=== PATIENT | female | born 1960 | race Caucasian/White ===

== ENCOUNTER 2024-01-26 14:22 | Emergency (ER) | payer BC, SELFPAY ==
[2024-01-26 14:26] VITALS: BP 148/85
[2024-01-26 15:00] VITALS: BP 141/79
[2024-01-26 15:05] VITALS: BMI 26.0
[2024-01-26 15:31] LABS: % Basophils 0.5 % (0-2); % Eosinophils 1.5 % (0-6); % Immature Granulocytes 0.5 % (0-0.5); % Lymphocytes 17.9 % (20.5-51.1); % Monocytes 9.1 % (1.7-9.3); % Neutrophils 70.5 % (42.2-75.2); Absolute Eosinophils 0.1 10^3/uL (0-0.7); Absolute Lymphocytes 1.2 10^3/uL (1.2-3.4); Absolute Monocytes 0.6 10^3/uL (0.1-0.6); Absolute Neutrophils 4.6 10^3/uL (1.4-6.5); Hematocrit 39.2 % (37.0-47.0); Hemoglobin 13.2 g/dL (12.0-16.0); Mean Corp Hgb Conc. 33.7 g/dL (33.0-37.0); Mean Corpuscular Hgb 30.3 pg (27.0-31.0); Mean Corpuscular Volume 89.9 fL (81.0-99.0); Mean Platelet Volume 9.6 fL (7.4-10.4); Nucleated Red Blood Cells % 0 %; Platelet Count 222 10^3/uL (130-400); Red Blood Cell Count 4.36 10^6/uL (4.20-5.40); White Blood Cell Count 6.5 10^3/uL (4.8-10.8)
[2024-01-26 15:35] LABS: INR 0.89; PT 12.1 Sec (11.4-14.6)
[2024-01-26 15:39] LABS: ALT (SGPT) 36 U/L (0-35); AST (SGOT) 31 U/L (14-36); Alkaline Phosphatase 96 U/L (38-126); Blood Urea Nitrogen 23 mg/dl (7-17); Calcium 9.5 mg/dl (8.4-10.2); Carbon Dioxide 24 mmol/L (22-30); Chloride 107 mmol/L (98-107); Estimated Creatinine Clearance 54 ml/min; Glucose 82 mg/dl (70-99); Potassium 3.9 mmol/L (3.5-5.1); Sodium 140 mmol/L (135-145); Total Bilirubin 0.3 mg/dl (0.2-1.3); Total Protein 6.4 g/dl (6.3-8.2); eGFR > 60.00
--- NOTE | 2024-01-26 15:44 | ED.GENMED ---
History of Present Illness
<Lynette Huitron PA-C - Last Filed: 01/26/24 19:39>
General
Chief Complaint: Chest Pain
Source: patient
Exam Limitations: none
Time Seen by Provider: 01/26/24 14:56
Nursing documentation reviewed up to this point in time: agreed with
History of Present Illness
History of Present Illness:
Patient is a 63-year-old female with history hypertension, CAD status post stents, diabetes presenting to the emergency department for evaluation of 1 day of chest discomfort associated with shortness of breath. Patient states that symptoms started
yesterday with a pressure type sensation in her mid chest. She also endorses a crampy type pain in her upper back in the mid scapular region. Patient does report subjective shortness of breath and pleuritic component to pain. Patient reports
minimal exertional component to discomfort. Patient denies any other alleviating or exacerbating factors the pain. Patient came to the emergency department for further evaluation given her cardiac history, although she does state that the symptoms
feel different than prior heart attacks.
Patient denies any associated fevers, chills, headache, neck pain. Patient denies any numbness/tingling in lower extremities or weakness.
Patient denies any recent travel or recent surgeries. No personal or family history of blood clots.
Patient has had stents placed with Dr. Geiger. Most recent catheterization was October 2022.\\
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
Review of Systems
<Lynette Huitron PA-C - Last Filed: 01/26/24 19:39>
Review of Systems
Allergies reviewed?: Yes
All Other Systems: ROS reviewed and negative except as documented in HPI and ROS
Phy Exam
<Lynette Huitron PA-C - Last Filed: 01/26/24 19:39>
Physical Exam
Physical Exam:
Vitals: Mildly hypertensive, otherwise vital signs stable. Afebrile
General: Patient is well appearing, no acute distress. Nontoxic-appearing
Skin: Warm and dry, no rashes or lesions
Head: Normocephalic, atraumatic
Eyes: Sclera nonicteric. EOMs intact. No nystagmus.
Throat: Protecting airway
Neck: Normal ROM, no cervical spine tenderness, no meningismus. No JVD
Cardiac: Regular rate and rhythm, no murmurs. No reproducible anterior chest wall tenderness.
Pulm: Normal respiratory effort, no wheezes, rales, rhonchi heard on exam.
Abdomen: Abdomen soft. No abdominal tenderness.
Extremities: No evidence of cyanosis or edema. No erythema or warmth of bilateral calves. Great distal pulses. Negative Homans' sign bilaterally.
Neuro: AAOx3. CN II-XII intact. No focal neurologic deficits.
Psychiatric: Normal affect.
Scores
<Lynette Huitron PA-C - Last Filed: 01/26/24 19:39>
Heart Score for Chest Pain Patients
STEMI patient?: No
History: Slightly or Non-Suspicious
ECG: Normal
Age: >45 - <65 years
Risk Factors: >/= 3 Risk Factors or History of CAD
Troponin: </= Normal Limit
Heart Score for Chest Pain Patients: 3
Heart Score Risk: 2.5% MACE over next 6 weeks
<Leonid Hall DO - Last Filed: 01/26/24 19:56>
Heart Score for Chest Pain Patients
Heart Score for Chest Pain Patients: 3
Heart Score Risk: 2.5% MACE over next 6 weeks
Course
<Lynette Huitron PA-C - Last Filed: 01/26/24 19:39>
Orders/Labs/Results
Orders:
Orders
01/26/24 14:24
ECG [Electrocardiogram (*1)] Urgent
Reason for Study: Chest Pain
EKG- Treatment ONCE
01/26/24 14:56
IV Insert/Care/Rem.- Treatment PRN
O2 Therapy [RESP] Urgent
Titrate/Wean O2 to maintain O2 sat greater than (%): 90
Special Instructions: Maintain sats >/=90%
Pulse Ox/spot Check [RESP] Urgent
Quantity: 1
Special Instructions: ON ROOM AIR
01/26/24 15:08
Complete Blood Count/With Diff Urgent
Comprehensive Metabolic Panel Urgent
Troponin I Urgent
01/26/24 15:09
D-Dimer Urgent
Comment: D DIMER ADDED ON BY FLOOR 3:40PM 01-26-24
Prothrombin Time Urgent
01/26/24 15:37
Add On- LAB Urgent
Tests Added?: d-dimer
01/26/24 16:53
CR Chest - 2 Views Urgent
Comment:
Reason For Exam: pleuritic chest pain, midscapular pain
Abnormal Lab Results
01/26/24
15:08
Lymphocytes % 17.9 L %
(20.5-51.1)
BUN 23 H mg/dl
(7-17)
ALT 36 H U/L
(0-35)
01/26/24 15:08
01/26/24 15:08
Vital Signs
Initial and Last Documented VS:
Initial Vital Signs
Temp Pulse Resp BP Pulse Ox
98.2 F 75 16 148/85 98
01/26/24 14:26 01/26/24 14:26 01/26/24 14:26 01/26/24 14:26 01/26/24 14:26
Last Documented Vital Signs
Temp Pulse Resp BP Pulse Ox
97.9 F 76 18 137/80 98
01/26/24 18:00 01/26/24 18:00 01/26/24 18:00 01/26/24 18:00 01/26/24 18:00
<Leonid Hall, DO - Last Filed: 01/26/24 19:56>
Orders/Labs/Results
Orders:
Orders
01/26/24 14:24
ECG [Electrocardiogram (*1)] Urgent
Reason for Study: Chest Pain
EKG- Treatment ONCE
01/26/24 14:56
IV Insert/Care/Rem.- Treatment PRN
O2 Therapy [RESP] Urgent
Titrate/Wean O2 to maintain O2 sat greater than (%): 90
Special Instructions: Maintain sats >/=90%
Pulse Ox/spot Check [RESP] Urgent
Quantity: 1
Special Instructions: ON ROOM AIR
01/26/24 15:08
Complete Blood Count/With Diff Urgent
Comprehensive Metabolic Panel Urgent
Troponin I Urgent
01/26/24 15:09
D-Dimer Urgent
Comment: D DIMER ADDED ON BY FLOOR 3:40PM 01-26-24
Prothrombin Time Urgent
01/26/24 15:37
Add On- LAB Urgent
Tests Added?: d-dimer
01/26/24 16:53
CR Chest - 2 Views Urgent
Comment:
Reason For Exam: pleuritic chest pain, midscapular pain
Abnormal Lab Results
01/26/24
15:08
Lymphocytes % 17.9 L %
(20.5-51.1)
BUN 23 H mg/dl
(7-17)
ALT 36 H U/L
(0-35)
01/26/24 15:08
01/26/24 15:08
Vital Signs
Initial and Last Documented VS:
Initial Vital Signs
Temp Pulse Resp BP Pulse Ox
98.2 F 75 16 148/85 98
01/26/24 14:26 01/26/24 14:26 01/26/24 14:26 01/26/24 14:26 01/26/24 14:26
Last Documented Vital Signs
Temp Pulse Resp BP Pulse Ox
97.9 F 76 18 137/80 98
01/26/24 18:00 01/26/24 18:00 01/26/24 18:00 01/26/24 18:00 01/26/24 18:00
<Lynette Huitron PA-C - Last Filed: 01/26/24 19:39>
MDM/Problems Addressed
Differential Diagnosis Includes:
Not limited to: Muscle strain, stable angina, myocarditis, pericarditis, ACS, pneumothorax, PE
MDM/Problems Addressed:
63-year-old female with history CAD, hypertension presenting with mild chest discomfort and shortness of breath beginning yesterday evening. Patient does report symptoms are somewhat pleuritic in nature although very minimal exertional component.
Does not feel similar to prior heart attacks. Patient is mildly hypertensive on arrival, although otherwise vital signs stable. Physical exam as above. She is well-appearing in no apparent distress. Heart regular rate and rhythm. Lungs clear
bilaterally. There is no reproducible tenderness of anterior chest wall. No clinical evidence of DVT on exam. She has palpable and equal distal pulses in bilateral upper and lower extremities. No abdominal tenderness. EKG obtained in triage
shows normal sinus rhythm without any acute ischemic changes. Will obtain basic labs, troponin. Patient low risk for PE, although given pleuritic nature of symptoms� Will check D-dimer. Will closely monitor and reassess
Labs noted. No clinically significant abnormalities. Troponin is negative. Given symptoms been ongoing since last night�this admission to rule out acute [place]. D-dimer is normal. Do not suspect pulmonary embolism or dissection as cause of
symptoms. Will check chest x-ray to rule out any other pulmonary process.
Initial read of chest x-ray with myself and attending showed no acute abnormalities. Patient has remained essentially asymptomatic since arrival to emergency department. Workup here negative. No indication for admission at this time. Given
significant cardiac history�will recommend close cardiology follow-up outpatient. She will call in the morning. Close return precautions discussed with patient she is comfortable with plan. All questions answered. Patient seen with attending
physician.
Chronic conditions affecting care:
History CAD, hypertension
Acute Exacerbation and/or Progression of Chronic Illness:
N/A
<Lynette Huitron PA-C - Last Filed: 01/26/24 19:39>
*Radiology
Radiology exam reviewed: preliminary read by ED provider (No acute abnormalities)
*Pulse Oximetry
Patient hypoxic: no
*EKG
Interpreted by ED Provider?: Yes
EKG Intrepretation Date: 01/26/24
Interpretation: normal
Comparison EKG: no changes
Heart Rate: 69
Rate: normal
Rhythm: sinus
Ischemia: no ischemia
*Board Runner Interpretation
Rate: normal
Interpretation: normal
Heart Rate: 68
Rhythm: sinus
*Critical Care Note
Total Time (30-74mins, 75-104mins- exclusive of procedures): Not Applicable
ED Attending Note
<Lynette Huitron PA-C - Last Filed: 01/26/24 19:39>
-
Portions of this chart may have been created with voice recognition software.� Occasional wrong word or��sound alike� substitutions may have occurred due to the inherent limitations of voice recognition software.
<Leonid Hall DO - Last Filed: 01/26/24 19:56>
ED Attending Note
Patient seen and examined by attending physician: Yes
I performed the substantive portion of visit, reviewed & personally made and approve the management plan that is documented in note by myself or WAGNER.: Yes
ED Attending Note:
63-year-old female with a history of coronary disease who presents with a chest discomfort in her lower chest rating toward her back. He states this is not in any way like her previous coronary symptoms and has been ongoing for at least 2 days.
Has been constant all day today. The patient reports is little worse when she takes deep breath. No motor weakness. No nausea. No vomiting. No palpitations. Exam: Awake and alert, heart regular, no lower extremity edema. Assessment and plan:
Low suspicion for ACS as she has had symptoms all day today at least and troponin negative. D-dimer negative. Outpatient follow-up recommended
Discharge Plan
Departure
Patient Disposition: Home (Routine Discharge)
Date of Disposition: 01/26/24
Time of Disposition: 18:34
Patient with high blood pressure during this ER visit?: No
Condition: Good
Covid-19: Not Applicable
Discharge Problem:
Chest pain
Instructions: Shortness of Breath, Adult ED, Chest Pain
Prescriptions:
No Action
insulin glargine [Lantus U-100 Insulin] 1,000 UNITS/10 ML solution
18 units SC DAILY
multivitamin [Daily Multiple] 1 EACH tablet
1 ea PO DAILY
levothyroxine 150 MCG tablet
112 mcg PO DAILY
Acidophilus 1 CAP capsule
1 cap PO DAILY
aspirin 81 MG tablet,delayed release (DR/EC)
81 mg PO DAILY Qty: 0 0RF
nitroglycerin 0.4 MG tablet, sublingual
0.4 mg sublingual [id number] PRN (Reason: chest pain) Qty: 30 2RF
Patient Comments:
PT STATES SHE HAS NOT TAKEN IN YEARS
furosemide 40 MG tablet
40 mg PO DAILY
clopidogrel 75 MG tablet
75 mg PO DAILY Qty: 90 3RF
carvedilol [Coreg] 12.5 mg Tablet
12.5 mg PO BID
alprazolam [Xanax] 0.25 mg Tablet
0.25 mg PO HS PRN (Reason: anxiety)
estradiol [Estrace] 0.01 % (0.1 mg/gram) Cream
1 g VAGINAL .TWICE WEEKLY
losartan 100 mg Tablet
100 mg PO DAILY
Jardiance 25 mg Tablet
25 mg PO DAILY
Trulicity 1.5 mg/0.5 mL Pen Injector
1.5 mg SC QWEEK
atorvastatin 40 MG tablet
40 mg PO DAILY
metformin 1,000 MG tablet
1,000 mg PO BID
Referrals:
Sang Geiger MD [Active] - Call in 1-3 days for appt
Bradley Mejias MD [Family Provider] -
Activity Restrictions/Additional Instructions:
RETURN TO THE EMERGENCY DEPARTMENT WITH ANY CHEST PAIN, SHORTNESS OF BREATH, CHEST PAIN WORSE WITH EXERTION, LIGHTHEADEDNESS/DIZZINESS, NAUSEA, WORSENING IN CURRENT SYMPTOMS, OR ANY OTHER CONCERNS
-As discussed- you should take it easy for the next few days until you are cleared by her card clothier. Is very importantly follow-up with your card clothier for further evaluation/management.
-Stay well-hydrated. You can take Tylenol as needed for any discomfort.
Closely monitor your symptoms and do not hesitate to return with any acute worsening/new symptoms.
Interventions
Interventions:
*Risk Screen - Suicide Last Done: 01/26/24 15:05
*General Assessment Last Done: 01/26/24 15:05
*Neglect/Abuse Screening Last Done: 01/26/24 15:05
ED- Fall Risk Assessment Last Done: 01/26/24 18:44
ED- Cardiac Assessment Last Done: 01/26/24 15:05
Discharge Date and Time
Print Language: [id number]
[2024-01-26 15:48] LABS: Troponin I < 0.012 ng/ml
[2024-01-26 16:00] VITALS: BP 131/71
[2024-01-26 16:52] LABS: D-Dimer < 0.27 ug/mlFEU (0.00-0.50)
[2024-01-26 17:00] VITALS: BP 134/66
[2024-01-26 18:00] VITALS: BP 137/80
== END 2024-01-26 19:00 | disposition home or self-care (01) ==
LOC: EMR 14:22
PROVIDERS: EMERGENCY PHYSICIAN Emergency Medicine; FAMILY PHYSICIAN Family Medicine
DX: R07.89 Other chest pain (principal); I25.10 Atherosclerotic heart disease of native coronary artery without angina pectoris; I10 Essential (primary) hypertension; E11.9 Type 2 diabetes mellitus without complications
CPT/HCPCS: 99285; 71046; 80053; 84484; 85025; 85379; 85610; 93005

== ENCOUNTER → 2024-05-01 12:53 | Outpatient (REF) | payer BC, SELFPAY | LOC: HWRAD 12:53 | PROVIDERS: ATTENDING PHYSICIAN Obstetrics & Gynecology; FAMILY PHYSICIAN Family Medicine | DX: N39.0 Urinary tract infection, site not specified (principal) | CPT/HCPCS: 76770 ==

== ENCOUNTER 2025-04-01 06:10 | Day surgery (SDC) | payer BC, SELFPAY ==
[2025-03-19 11:00] LABS: Hematocrit 43.7 % (37.0-47.0); Hemoglobin 14.7 g/dL (12.0-16.0); Mean Corp Hgb Conc. 33.6 g/dL (33.0-37.0); Mean Corpuscular Volume 92.8 fL (81.0-99.0); Platelet Count 217 10^3/uL (130-400); Red Cell Dist. Width 12.7 % (11.5-14.5)
[2025-03-19 13:40] LABS: Blood Urea Nitrogen 22 mg/dl (7-17); Calcium 10.3 mg/dl (8.4-10.2); Carbon Dioxide 29 mmol/L (22-30); Chloride 102 mmol/L (98-107); Glucose 104 mg/dl (70-99); Potassium 4.3 mmol/L (3.5-5.1); Sodium 140 mmol/L (135-145); eGFR > 60.00
[2025-03-19 14:07] VITALS: BMI 21.6
[2025-04-01] VITALS (11 sets, daily range): BP systolic 107–115; BP diastolic 58–72; BMI 21.6
[2025-04-01 13:08] LABS: Glucose - Point of Care 109 mg/dl (70-99)
[2025-04-01] MEDS: HEPARIN 5000 UNITS SC (14:02)
[2025-04-01] MEDS: NORMOSOL-R/PLASMALYTE-A 1000 IV (14:05)
[2025-04-01] MEDS: DILAUDID 0.25 MG IV ×2 (16:22→17:14)
== END 2025-04-01 18:27 | disposition home or self-care (01) ==
LOC: SDS 06:10
PROVIDERS: ATTENDING PHYSICIAN Obstetrics & Gynecology; FAMILY PHYSICIAN Family Medicine
DX: N81.10 Cystocele, unspecified (principal); N81.6 Rectocele; N95.8 Other specified menopausal and perimenopausal disorders
CPT/HCPCS: 57260; 36415; 80048; 82962; 85027; 86850; 86900; 86901; 93005

== ENCOUNTER 2025-04-05 22:19 | Inpatient (IN) | payer BC, SELFPAY ==
[2025-04-05] VITALS (11 sets, daily range): BP systolic 124–180; BP diastolic 50–95; BMI 23.4; BMI 22.1
--- NOTE | 2025-04-05 12:08 | ED.GENMED ---
History of Present Illness
<EULALIO Kennedy - Last Filed: 04/07/25 17:41>
General
Chief Complaint: Bowel Problem
Source: patient
Exam Limitations: none
Time Seen by Provider: 04/05/25 11:50
Nursing documentation reviewed up to this point in time: agreed with
History of Present Illness
History of Present Illness:
64-year-old female presents to the ER for evaluation of constipation. Patient has a history of gastroparesis and bladder prolapse, cardiac stents x 5 presents to the ER for evaluation. Patient had bladder prolapse surgery (as documented recent
cystocele and rectocele surgery )and 2 bowel hernias which were repaired by Dr. Francis on Tuesday 4 days ago. She was initially on Vicodin however with increased pain with switch to Dilaudid. She has been on a bowel regimen including stool
softener Senokot Milk of Magnesia however has not had a bowel movement since Tuesday. This morning however she woke up with a distended abdomen. She reports it felt very hard and is very uncomfortable she has not. She is nauseous but is not
vomiting. Denies any fever or chills. In addition she reports when she urinates she is only trickling urine.
Phy Exam
<EULALIO Kennedy - Last Filed: 04/07/25 17:41>
General Physical Exam
General Presentation: no apparent distress
General age: appears stated age
General Skin: warm and dry
General Habitus: normal
General Mental: alert
General Hydration: appears well hydrated
Gastrointestinal Exam
Gastrointestinal Exam: soft and other (Abdomen distended tender throughout; rectal exam right buttocks with ecchymosis, small amount of hard stool on rectal exam)
Neurological Exam
Neurological Exam: alert and oriented x3
Musculoskeletal Exam
Musculoskeletal Exam: full ROM
Skin Exam
Skin Exam: normal color and warm/dry
Psychiatric Exam
Psychiatric Exam: normal mood/affect
Course
<EULALIO Kennedy - Last Filed: 04/07/25 17:41>
Orders/Labs/Results
Orders:
Orders
04/05/25 12:28
CT Abd/pel W Iv And Oral Contr Urgent
Comment:
Reason For Exam: abd pain /constipation/s/p surg
IV Insert/Care/Rem.- Treatment PRN
0.9% Sodium Chloride 1000 ml [Nss] 1,000 ml IV BOLUS
Acetaminophen 1000MG/100Ml [Ofirmev] 1,000 mg in 100 ml IV ONCE
Acetaminophen IV Indication:: Ileus/Delayed Bowel Func.
Iohexol [Omnipaque] See Protocol PO NOW STA
Ondansetron Injectable [Zofran] 4 mg IV NOW STA
04/05/25 12:43
Complete Blood Count/With Diff Urgent
Comprehensive Metabolic Panel Urgent
Lipase Urgent
04/05/25 13:18
Pacheco [Pacheco Placement- Treatment] ONCE
Reason for insertion: Acute Retention
04/05/25 14:12
UA Reflex to Culture [Urinalysis Reflex To Culture] Urgent
Date Specimen was Collected: 04/05/25
Time Specimen was Collected: 14:11
Urine Microscopic Reflex Cult Urgent
Urine Culture Urgent
DARRICK Source: U
Specimen Description:
Date Specimen was Collected: 04/05/25
Time Specimen was Collected: 14:11
04/05/25 16:03
Enema- Treatment ONCE
Type: Milk of Molasses
04/05/25 18:37
HYDROmorphone [Dilaudid] 0.5 mg IV NOW STA
Ondansetron Injectable [Zofran] 4 mg IV NOW STA
04/05/25 18:38
CT Abd/pel Without Iv Or Oral Urgent
Comment:
Reason For Exam: abdominal pain
04/05/25 19:33
Electrocardiogram (*1) Urgent
Reason for Study: Abdominal Pain
EKG- Treatment ONCE
04/05/25 19:39
HYDROmorphone [Dilaudid] 0.5 mg IV NOW STA
04/05/25 19:44
Troponin I Urgent
04/05/25 20:41
CBC/With Diff [Complete Blood Count/With Diff] Urgent
Lactic Acid Urgent
04/05/25 20:50
Dicyclomine [Bentyl] 10 mg PO NOW STA
Famotidine [Pepcid] 20 mg IV NOW STA
04/05/25 21:49
Admit/Transfer Patient As Directed
Co-Sign Provider:
Level of Care: Inpatient admission
Assign to:: Medical/Surgical
Physician / Group: Prabhakar Lees
Diagnosis: abdominal pain, constipation, acute urinary retention
Reason for Hospitalization: abdominal pain, constipation, acute urinary retention
Expected length of stay greater than two midnights?: Yes
ELOS- Estimated Length of Stay in days: 3
I certify the patient meets the requirements for IP care: Yes
PRN Pain Medication Management As Directed
May give lesser potent ordered pain med per pt: Yes
preference::
Protocol:: Medication orders for pain may be administered in a
manner that supports deferring to patient preference
when the pt is:
- Requesting an ordered lesser potent pain medication.
Least to most potent pain medications are defined
as: acetaminophen < NSAID < tramadol < opioids
(morphine, oxycodone, hydromorphone).
- Requesting a lesser dose of the same medication IF
ORDERED.
- Requesting a less intrusive route of administration
if both routes are prescribed by the provider (PO <
IV).
04/05/25 21:51
Code Status As Directed
Resuscitation Status: Full Code
04/05/25 23:05
0.9% Sodium Chloride 1000 ml [Nss] 1,000 ml IV 80 mls/hr
Acetaminophen [Tylenol] 650 mg PO Q4HPRN PRN
Alprazolam [Xanax] 0.25 mg PO HSPRN PRN anxiety, insomnia
Bisacodyl [Dulcolax] 10 mg RECTAL [id number] PRN
Docusate Sodium [Colace] 100 mg PO BID
Docusate W/Senna [Senokot-S] 1 tablet PO BIDPRN PRN
HYDROmorphone [Dilaudid] 0.5 mg IV Q4HPRN PRN
Ketorolac [Toradol] 10 mg IV Q6HPRN PRN
Magnesium Citrate [Citroma] 300 ml PO ONCE ONE
Ondansetron Injectable [Zofran] 4 mg IV Q6HPRN PRN
Polyethylene Glycol Powder [Miralax] 17 grams PO DAILYPRN PRN
Sennosides [Senokot] 8.6 mg PO BID
04/05/25 23:05
Activity As Directed
Activity Level: As Tolerated
Intake/ Output As Directed
Frequency: Per unit guidelines
Vital Signs As Directed
Frequency: Per unit guidelines
Weight As Directed
Frequency: Once
Comment: on admission
DX Deep Vein Thrombosis Video Routine
04/06/25 06:00
Levothyroxine [Synthroid] 112 mcg PO DAILY @ 0600
04/06/25 08:00
Aspirin Low Dose EC [Aspir Low (Enteric Coated)] 81 mg PO DAILY
Atorvastatin [Lipitor] 40 mg PO DAILY
Carvedilol [Coreg] 12.5 mg PO BID
Clopidogrel Bisulfate [Plavix] 75 mg PO DAILY
Lactobac/Bifidobac [Visbiome] 1 cap PO DAILY
Losartan [Cozaar] 25 mg PO DAILY
Trimethoprim [Trimpex] 100 mg PO DAILY
04/06/25 08:01
Basic Metabolic Panel IN AM
04/06/25 18:00
Enoxaparin Sodium [Lovenox] 40 mg SC QPM
Abnormal Lab Results
04/05/25 04/05/25 04/05/25
12:43 14:12 17:52
MCH 31.1 H pg
(27.0-31.0)
Absolute Neuts (auto)
Absolute Lymphs (auto)
Neutrophils %
Lymphocytes %
Monocytes %
BUN 18 H mg/dl
(7-17)
Glucose 113 H mg/dl
(70-99)
Lactic Acid
AST 41 H U/L
(14-36)
ALT 48 H U/L
(0-35)
Urine Ketones 2+ A
(Negative)
Ur Occult Blood Reflex 2+ A
(Negative)
Urine RBC 11-15 A /HPF
(0-2)
Urine Bacteria (Reflex) Many A
(Negative)
Urine Glucose 4+ A
(Negative)
Urine Albumin (Reflex) 1+ A
(Neg - Trace)
POC Glucose 105 H mg/dl
(70-99)
04/05/25
20:41
MCH
Absolute Neuts (auto) 7.1 H 10^3/uL
(1.4-6.5)
Absolute Lymphs (auto) 0.4 L 10^3/uL
(1.2-3.4)
Neutrophils % 92.1 H %
(42.2-75.2)
Lymphocytes % 5.7 L %
(20.5-51.1)
Monocytes % 1.0 L %
(1.7-9.3)
BUN
Glucose
Lactic Acid 0.6 L mmol/L
(0.7-2.0)
AST
ALT
Urine Ketones
Ur Occult Blood Reflex
Urine RBC
Urine Bacteria (Reflex)
Urine Glucose
Urine Albumin (Reflex)
POC Glucose
04/05/25 20:41
04/05/25 12:43
Vital Signs
Initial and Last Documented VS:
Initial Vital Signs
Temp Pulse Resp BP Pulse Ox
98.2 F 80 16 150/95 97
04/05/25 09:41 04/05/25 09:41 04/05/25 09:41 04/05/25 09:41 04/05/25 09:41
Last Documented Vital Signs
Temp Pulse Resp BP Pulse Ox
98.2 F 65 18 120/61 99
04/07/25 15:43 04/07/25 15:43 04/07/25 15:43 04/07/25 15:43 04/07/25 15:43
<Mg Fishman PA-C - Last Filed: 04/05/25 19:10>
Orders/Labs/Results
Orders:
Orders
04/05/25 12:28
CT Abd/pel W Iv And Oral Contr Urgent
Comment:
Reason For Exam: abd pain /constipation/s/p surg
IV Insert/Care/Rem.- Treatment PRN
0.9% Sodium Chloride 1000 ml [Nss] 1,000 ml IV BOLUS
Acetaminophen 1000MG/100Ml [Ofirmev] 1,000 mg in 100 ml IV ONCE
Acetaminophen IV Indication:: Ileus/Delayed Bowel Func.
Iohexol [Omnipaque] See Protocol PO NOW STA
Ondansetron Injectable [Zofran] 4 mg IV NOW STA
04/05/25 12:43
Complete Blood Count/With Diff Urgent
Comprehensive Metabolic Panel Urgent
Lipase Urgent
04/05/25 13:18
Pacheco [Pacheco Placement- Treatment] ONCE
Reason for insertion: Acute Retention
04/05/25 14:12
UA Reflex to Culture [Urinalysis Reflex To Culture] Urgent
Date Specimen was Collected: 04/05/25
Time Specimen was Collected: 14:11
Urine Microscopic Reflex Cult Urgent
Urine Culture Urgent
DARRICK Source: U
Specimen Description:
Date Specimen was Collected: 04/05/25
Time Specimen was Collected: 14:11
04/05/25 16:03
Enema- Treatment ONCE
Type: Milk of Molasses
04/05/25 18:37
HYDROmorphone [Dilaudid] 0.5 mg IV NOW STA
Ondansetron Injectable [Zofran] 4 mg IV NOW STA
04/05/25 18:38
CT Abd/pel Without Iv Or Oral Urgent
Comment:
Reason For Exam: abdominal pain
04/05/25 19:33
Electrocardiogram (*1) Urgent
Reason for Study: Abdominal Pain
EKG- Treatment ONCE
04/05/25 19:39
HYDROmorphone [Dilaudid] 0.5 mg IV NOW STA
04/05/25 19:44
Troponin I Urgent
04/05/25 20:41
CBC/With Diff [Complete Blood Count/With Diff] Urgent
Lactic Acid Urgent
04/05/25 20:50
Dicyclomine [Bentyl] 10 mg PO NOW STA
Famotidine [Pepcid] 20 mg IV NOW STA
04/05/25 21:49
Admit/Transfer Patient As Directed
Co-Sign Provider:
Level of Care: Inpatient admission
Assign to:: Medical/Surgical
Physician / Group: Prabhakar Lees
Diagnosis: abdominal pain, constipation, acute urinary retention
Reason for Hospitalization: abdominal pain, constipation, acute urinary retention
Expected length of stay greater than two midnights?: Yes
ELOS- Estimated Length of Stay in days: 3
I certify the patient meets the requirements for IP care: Yes
PRN Pain Medication Management As Directed
May give lesser potent ordered pain med per pt: Yes
preference::
Protocol:: Medication orders for pain may be administered in a
manner that supports deferring to patient preference
when the pt is:
- Requesting an ordered lesser potent pain medication.
Least to most potent pain medications are defined
as: acetaminophen < NSAID < tramadol < opioids
(morphine, oxycodone, hydromorphone).
- Requesting a lesser dose of the same medication IF
ORDERED.
- Requesting a less intrusive route of administration
if both routes are prescribed by the provider (PO <
IV).
04/05/25 21:51
Code Status As Directed
Resuscitation Status: Full Code
04/05/25 23:05
0.9% Sodium Chloride 1000 ml [Nss] 1,000 ml IV 80 mls/hr
Acetaminophen [Tylenol] 650 mg PO Q4HPRN PRN
Alprazolam [Xanax] 0.25 mg PO HSPRN PRN anxiety, insomnia
Bisacodyl [Dulcolax] 10 mg RECTAL [id number] PRN
Docusate Sodium [Colace] 100 mg PO BID
Docusate W/Senna [Senokot-S] 1 tablet PO BIDPRN PRN
HYDROmorphone [Dilaudid] 0.5 mg IV Q4HPRN PRN
Ketorolac [Toradol] 10 mg IV Q6HPRN PRN
Magnesium Citrate [Citroma] 300 ml PO ONCE ONE
Ondansetron Injectable [Zofran] 4 mg IV Q6HPRN PRN
Polyethylene Glycol Powder [Miralax] 17 grams PO DAILYPRN PRN
Sennosides [Senokot] 8.6 mg PO BID
04/05/25 23:05
Activity As Directed
Activity Level: As Tolerated
Intake/ Output As Directed
Frequency: Per unit guidelines
Vital Signs As Directed
Frequency: Per unit guidelines
Weight As Directed
Frequency: Once
Comment: on admission
DX Deep Vein Thrombosis Video Routine
04/06/25 06:00
Levothyroxine [Synthroid] 112 mcg PO DAILY @ 0600
04/06/25 08:00
Aspirin Low Dose EC [Aspir Low (Enteric Coated)] 81 mg PO DAILY
Atorvastatin [Lipitor] 40 mg PO DAILY
Carvedilol [Coreg] 12.5 mg PO BID
Clopidogrel Bisulfate [Plavix] 75 mg PO DAILY
Lactobac/Bifidobac [Visbiome] 1 cap PO DAILY
Losartan [Cozaar] 25 mg PO DAILY
Trimethoprim [Trimpex] 100 mg PO DAILY
04/06/25 08:01
Basic Metabolic Panel IN AM
04/06/25 18:00
Enoxaparin Sodium [Lovenox] 40 mg SC QPM
Abnormal Lab Results
04/05/25 04/05/25 04/05/25
12:43 14:12 17:52
MCH 31.1 H pg
(27.0-31.0)
Absolute Neuts (auto)
Absolute Lymphs (auto)
Neutrophils %
Lymphocytes %
Monocytes %
BUN 18 H mg/dl
(7-17)
Glucose 113 H mg/dl
(70-99)
Lactic Acid
AST 41 H U/L
(14-36)
ALT 48 H U/L
(0-35)
Urine Ketones 2+ A
(Negative)
Ur Occult Blood Reflex 2+ A
(Negative)
Urine RBC 11-15 A /HPF
(0-2)
Urine Bacteria (Reflex) Many A
(Negative)
Urine Glucose 4+ A
(Negative)
Urine Albumin (Reflex) 1+ A
(Neg - Trace)
POC Glucose 105 H mg/dl
(70-99)
04/05/25
20:41
MCH
Absolute Neuts (auto) 7.1 H 10^3/uL
(1.4-6.5)
Absolute Lymphs (auto) 0.4 L 10^3/uL
(1.2-3.4)
Neutrophils % 92.1 H %
(42.2-75.2)
Lymphocytes % 5.7 L %
(20.5-51.1)
Monocytes % 1.0 L %
(1.7-9.3)
BUN
Glucose
Lactic Acid 0.6 L mmol/L
(0.7-2.0)
AST
ALT
Urine Ketones
Ur Occult Blood Reflex
Urine RBC
Urine Bacteria (Reflex)
Urine Glucose
Urine Albumin (Reflex)
POC Glucose
04/05/25 20:41
04/05/25 12:43
Vital Signs
Initial and Last Documented VS:
Initial Vital Signs
Temp Pulse Resp BP Pulse Ox
98.2 F 80 16 150/95 97
04/05/25 09:41 04/05/25 09:41 04/05/25 09:41 04/05/25 09:41 04/05/25 09:41
Last Documented Vital Signs
Temp Pulse Resp BP Pulse Ox
98.2 F 65 18 120/61 99
04/07/25 15:43 04/07/25 15:43 04/07/25 15:43 04/07/25 15:43 04/07/25 15:43
<Estiven Topete MD - Last Filed: 04/05/25 20:17>
Orders/Labs/Results
Orders:
Orders
04/05/25 12:28
CT Abd/pel W Iv And Oral Contr Urgent
Comment:
Reason For Exam: abd pain /constipation/s/p surg
IV Insert/Care/Rem.- Treatment PRN
0.9% Sodium Chloride 1000 ml [Nss] 1,000 ml IV BOLUS
Acetaminophen 1000MG/100Ml [Ofirmev] 1,000 mg in 100 ml IV ONCE
Acetaminophen IV Indication:: Ileus/Delayed Bowel Func.
Iohexol [Omnipaque] See Protocol PO NOW STA
Ondansetron Injectable [Zofran] 4 mg IV NOW STA
04/05/25 12:43
Complete Blood Count/With Diff Urgent
Comprehensive Metabolic Panel Urgent
Lipase Urgent
04/05/25 13:18
Pacheco [Pacheco Placement- Treatment] ONCE
Reason for insertion: Acute Retention
04/05/25 14:12
UA Reflex to Culture [Urinalysis Reflex To Culture] Urgent
Date Specimen was Collected: 04/05/25
Time Specimen was Collected: 14:11
Urine Microscopic Reflex Cult Urgent
Urine Culture Urgent
DARRICK Source: U
Specimen Description:
Date Specimen was Collected: 04/05/25
Time Specimen was Collected: 14:11
04/05/25 16:03
Enema- Treatment ONCE
Type: Milk of Molasses
04/05/25 18:37
HYDROmorphone [Dilaudid] 0.5 mg IV NOW STA
Ondansetron Injectable [Zofran] 4 mg IV NOW STA
04/05/25 18:38
CT Abd/pel Without Iv Or Oral Urgent
Comment:
Reason For Exam: abdominal pain
04/05/25 19:33
Electrocardiogram (*1) Urgent
Reason for Study: Abdominal Pain
EKG- Treatment ONCE
04/05/25 19:39
HYDROmorphone [Dilaudid] 0.5 mg IV NOW STA
04/05/25 19:44
Troponin I Urgent
04/05/25 20:41
CBC/With Diff [Complete Blood Count/With Diff] Urgent
Lactic Acid Urgent
04/05/25 20:50
Dicyclomine [Bentyl] 10 mg PO NOW STA
Famotidine [Pepcid] 20 mg IV NOW STA
04/05/25 21:49
Admit/Transfer Patient As Directed
Co-Sign Provider:
Level of Care: Inpatient admission
Assign to:: Medical/Surgical
Physician / Group: Prabhakar Lees
Diagnosis: abdominal pain, constipation, acute urinary retention
Reason for Hospitalization: abdominal pain, constipation, acute urinary retention
Expected length of stay greater than two midnights?: Yes
ELOS- Estimated Length of Stay in days: 3
I certify the patient meets the requirements for IP care: Yes
PRN Pain Medication Management As Directed
May give lesser potent ordered pain med per pt: Yes
preference::
Protocol:: Medication orders for pain may be administered in a
manner that supports deferring to patient preference
when the pt is:
- Requesting an ordered lesser potent pain medication.
Least to most potent pain medications are defined
as: acetaminophen < NSAID < tramadol < opioids
(morphine, oxycodone, hydromorphone).
- Requesting a lesser dose of the same medication IF
ORDERED.
- Requesting a less intrusive route of administration
if both routes are prescribed by the provider (PO <
IV).
04/05/25 21:51
Code Status As Directed
Resuscitation Status: Full Code
04/05/25 23:05
0.9% Sodium Chloride 1000 ml [Nss] 1,000 ml IV 80 mls/hr
Acetaminophen [Tylenol] 650 mg PO Q4HPRN PRN
Alprazolam [Xanax] 0.25 mg PO HSPRN PRN anxiety, insomnia
Bisacodyl [Dulcolax] 10 mg RECTAL [id number] PRN
Docusate Sodium [Colace] 100 mg PO BID
Docusate W/Senna [Senokot-S] 1 tablet PO BIDPRN PRN
HYDROmorphone [Dilaudid] 0.5 mg IV Q4HPRN PRN
Ketorolac [Toradol] 10 mg IV Q6HPRN PRN
Magnesium Citrate [Citroma] 300 ml PO ONCE ONE
Ondansetron Injectable [Zofran] 4 mg IV Q6HPRN PRN
Polyethylene Glycol Powder [Miralax] 17 grams PO DAILYPRN PRN
Sennosides [Senokot] 8.6 mg PO BID
04/05/25 23:05
Activity As Directed
Activity Level: As Tolerated
Intake/ Output As Directed
Frequency: Per unit guidelines
Vital Signs As Directed
Frequency: Per unit guidelines
Weight As Directed
Frequency: Once
Comment: on admission
DX Deep Vein Thrombosis Video Routine
04/06/25 06:00
Levothyroxine [Synthroid] 112 mcg PO DAILY @ 0600
04/06/25 08:00
Aspirin Low Dose EC [Aspir Low (Enteric Coated)] 81 mg PO DAILY
Atorvastatin [Lipitor] 40 mg PO DAILY
Carvedilol [Coreg] 12.5 mg PO BID
Clopidogrel Bisulfate [Plavix] 75 mg PO DAILY
Lactobac/Bifidobac [Visbiome] 1 cap PO DAILY
Losartan [Cozaar] 25 mg PO DAILY
Trimethoprim [Trimpex] 100 mg PO DAILY
04/06/25 08:01
Basic Metabolic Panel IN AM
04/06/25 18:00
Enoxaparin Sodium [Lovenox] 40 mg SC QPM
Abnormal Lab Results
04/05/25 04/05/25 04/05/25
12:43 14:12 17:52
MCH 31.1 H pg
(27.0-31.0)
Absolute Neuts (auto)
Absolute Lymphs (auto)
Neutrophils %
Lymphocytes %
Monocytes %
BUN 18 H mg/dl
(7-17)
Glucose 113 H mg/dl
(70-99)
Lactic Acid
AST 41 H U/L
(14-36)
ALT 48 H U/L
(0-35)
Urine Ketones 2+ A
(Negative)
Ur Occult Blood Reflex 2+ A
(Negative)
Urine RBC 11-15 A /HPF
(0-2)
Urine Bacteria (Reflex) Many A
(Negative)
Urine Glucose 4+ A
(Negative)
Urine Albumin (Reflex) 1+ A
(Neg - Trace)
POC Glucose 105 H mg/dl
(70-99)
04/05/25
20:41
MCH
Absolute Neuts (auto) 7.1 H 10^3/uL
(1.4-6.5)
Absolute Lymphs (auto) 0.4 L 10^3/uL
(1.2-3.4)
Neutrophils % 92.1 H %
(42.2-75.2)
Lymphocytes % 5.7 L %
(20.5-51.1)
Monocytes % 1.0 L %
(1.7-9.3)
BUN
Glucose
Lactic Acid 0.6 L mmol/L
(0.7-2.0)
AST
ALT
Urine Ketones
Ur Occult Blood Reflex
Urine RBC
Urine Bacteria (Reflex)
Urine Glucose
Urine Albumin (Reflex)
POC Glucose
04/05/25 20:41
04/05/25 12:43
Vital Signs
Initial and Last Documented VS:
Initial Vital Signs
Temp Pulse Resp BP Pulse Ox
98.2 F 80 16 150/95 97
04/05/25 09:41 04/05/25 09:41 04/05/25 09:41 04/05/25 09:41 04/05/25 09:41
Last Documented Vital Signs
Temp Pulse Resp BP Pulse Ox
98.2 F 65 18 120/61 99
04/07/25 15:43 04/07/25 15:43 04/07/25 15:43 04/07/25 15:43 04/07/25 15:43
<EULALIO Kennedy - Last Filed: 04/07/25 17:41>
MDM/Problems Addressed
Differential Diagnosis Includes:
not limitd to : Constipation bowel obstruction urinary tension, UTI
MDM/Problems Addressed:
As documented patient is a 64-year-old female status post bladder prolapse and hernia repair by Dr. Francis presents for evaluation of abdominal pain constipation. Patient has had some difficulty urinating only trickling. Abdomen very distended
patient found to have urinary tension with greater than of [address] and pt with good relief. with degree of consipation will obtain ct. Patient afebrile with normal white count normal chemistries
CAT scan shows stool in the rectal vault consistent with history of constipation hard stool incidental pulmonary nodules. Patient is much more comfortable now that her bladder was drained. Case reviewed with Dr. Francis.
Will try enema and plan to discharge home. Patient has narcotics at home however she does not feel that she will need them now that she is more comfortable after having her bladder drained.
She will call Dr. Francis's office on Tuesday to make an appointment to have the Pacheco catheter removed on Tuesday. She is to return if any worsening of symptoms.
Chronic conditions affecting care:
Recent cystocele rectocele surgery
<EULALIO Kennedy - Last Filed: 04/07/25 17:41>
*Radiology
Radiology exam reviewed: radiology read reviewed
*Pulse Oximetry
SaO2: 97
Oxygen Mode of Delivery: Room air
Patient hypoxic: no
*Critical Care Note
Total Time (30-74mins, 75-104mins- exclusive of procedures): Not Applicable
<Mg Fishman PA-C - Last Filed: 04/05/25 19:10>
Update Note
Update Note:
Received care of patient upon signout pending enema. Patient did have large bowel movement after enema. Shortly before discharge, patient developed more abdominal discomfort. She now complains of severe abdominal pain with chills and nausea.
Reexamination provides significant tenderness to palpation. Will restart IV administer pain and nausea medicine and get the CAT scan for evaluation of possible perforation
<Estiven Topete MD - Last Filed: 04/05/25 20:17>
Update Note
Update Note:
Received care of patient upon signout pending enema. Patient did have large bowel movement after enema. Shortly before discharge, patient developed more abdominal discomfort. She now complains of severe abdominal pain with chills and nausea.
Reexamination provides significant tenderness to palpation. Will restart IV administer pain and nausea medicine and get the CAT scan for evaluation of possible perforation
1844.... I evaluated this patient. Stable vital signs but quite tender diffusely. No bowel sounds. Very concerned about a perforation. CAT scan ordered plain. Pain management. Asked her to go next for CT. Patient's primary surgeon was
notified of the change in her status
1730... Preliminary report dilated loops of large bowel. No free air. Ruptured spleen. Contacted her surgeon and also looped in general surgery
ED Attending Note
<EULALIO Kennedy - Last Filed: 04/07/25 17:41>
-
Portions of this chart may have been created with voice recognition software.� Occasional wrong word or��sound alike� substitutions may have occurred due to the inherent limitations of voice recognition software.
<Estiven Topete MD - Last Filed: 04/05/25 20:17>
ED Attending Note
Patient seen and examined by attending physician: Yes
I performed the substantive portion of visit, reviewed & personally made and approve the management plan that is documented in note by myself or WAGNER.: Yes
ED Attending Note:
2014.... Patient rechecked. Appears more comfortable. Multiple discussions with surgery and urologic oncologic surgery. Conservative management overnight. Admit. Medicine involved. Patient and family updated. EKG within normal limits.
Discharge Plan
Departure
Patient Disposition: Admit
Date of Disposition: 04/05/25
Time of Disposition: 20:18
Presentation/result/management discussed w/ accepting MD/DO: Tito/general surgery
Patient with high blood pressure during this ER visit?: Yes
Condition: Fair
Covid-19: Not Applicable
Discharge Problem:
Constipation, Acute urinary retention
Interventions
Interventions:
*Risk Screen - Suicide Last Done: 04/05/25 11:38
*General Assessment Last Done: 04/05/25 11:38
*Neglect/Abuse Screening Last Done: 04/05/25 11:38
*ED- Fall Risk Assessment Last Done: 04/05/25 11:38
*ED COVID-19 Vaccine History Last Done: 04/05/25 11:38
*Nursing Disposition Last Done: 04/05/25 22:55
[id number] Assessment Last Done: 04/05/25 11:38
Discharge Date and Time
Discharge Date/Time: 04/05/25 23:05
[2025-04-05] MEDS: ZOFRAN 4 MG IV ×2 (12:38→18:49)
[2025-04-05] MEDS: OMNIPAQUE 50 ML PO (12:38)
[2025-04-05] MEDS: NSS 1000 IV ×2 (12:39→23:43)
[2025-04-05 12:56] LABS: Hematocrit 39.9 % (37.0-47.0); Hemoglobin 13.4 g/dL (12.0-16.0); Mean Corp Hgb Conc. 33.6 g/dL (33.0-37.0); Mean Corpuscular Volume 92.6 fL (81.0-99.0); Nucleated Red Blood Cells % 0 %; Platelet Count 221 10^3/uL (130-400); Red Cell Dist. Width 12.8 % (11.5-14.5)
[2025-04-05 13:13] LABS: ALT (SGPT) 48 U/L (0-35); AST (SGOT) 41 U/L (14-36); Albumin 4.1 g/dl (3.5-5.0); Alkaline Phosphatase 60 U/L (38-126); Blood Urea Nitrogen 18 mg/dl (7-17); Calcium 9.5 mg/dl (8.4-10.2); Carbon Dioxide 27 mmol/L (22-30); Chloride 105 mmol/L (98-107); Estimated Creatinine Clearance 60 ml/min; Glucose 113 mg/dl (70-99); Lipase 53 U/L (23-300); Potassium 4.7 mmol/L (3.5-5.1); Sodium 138 mmol/L (135-145); Total Protein 6.5 g/dl (6.3-8.2); eGFR > 60.00
[2025-04-05] MEDS: OFIRMEV 100 IV (13:33)
[2025-04-05 14:23] LABS: Urine Character Clear (Clear)
[2025-04-05 14:47] LABS: Urine Squamous Cell 0-2 /LPF (Few); Urine White Cell 0-2 /HPF (0-5)
[2025-04-05 17:58] LABS: Glucose - Point of Care 105 mg/dl (70-99)
[2025-04-05] MEDS: DILAUDID 0.5 MG IV ×3 (18:49→23:56)
[2025-04-05 20:18] LABS: Troponin I < 0.012 ng/ml
[2025-04-05 20:54] LABS: Hematocrit 38.5 % (37.0-47.0); Hemoglobin 13.1 g/dL (12.0-16.0); Mean Corp Hgb Conc. 34.0 g/dL (33.0-37.0); Mean Corpuscular Volume 91.0 fL (81.0-99.0); Nucleated Red Blood Cells % 0 %; Platelet Count 206 10^3/uL (130-400); Red Cell Dist. Width 12.6 % (11.5-14.5)
[2025-04-05] MEDS: PEPCID 20 MG IV (20:55)
[2025-04-05] MEDS: BENTYL 10 MG PO (20:56)
--- NOTE | 2025-04-05 21:01 | HPS.HSE ---
Family Physician
-
Family Physician: Bradley Mejias
Chief Complaint
-
constipation
History of Present Illness
Patient is a 64-year-old female with past medical history significant for hypertension, hyperlipidemia, type 2 diabetes, Hashimotos thyroiditis, CAD and anxiety who presented to [facility] ED for evaluation at recommendation of Dr. Stanton. Patient had
documented recent cystocele and rectocele surgery by Dr. Francis on 04/01/2025. Patient was prescribed Vicodin and then increased to Dilaudid for post operative pain. She was compliant with bowel regimen as recommended by Dr. Stanton's
office, despite interventions patient had not had a bowel movement since presurgery on 03/31/2025. Patient woke this morning with abdominal distention and discomfort. She reported associated nausea and emesis of bile this morning. She contacted .
Romy who requested her go to ED for evaluation. ED workup revealed fecal impaction and urinary retention. Patient given enema with positive results but patient had significantly increased pain and discomfort and repeat CT was ordered. She was
also found to be retaining urine and Ferreira placed with good urine return and discomfort relief. Patient denies any fever, chills, cough, shortness of breath or chest pain.
Medical History
Past Medical History
Past Medical History: Reports Other
Additional Past Medical History:
hypertension
hyperlipidemia
type 2 diabetes
Hashimotos thyroiditis
CAD
anxiety
Past Surgical History: Reports Other
Additional Past Surgical History:
cardiac cath with stents x5
cystocele/rectocele surgery
hysterectomy
ureteroscopyx5
Social History
Tobacco: Non-smoker
Alcohol: None
Drug: None
Personal:
Living: With Family
Employment: Employed
Family History
Family History: Not pertinent
Allergies / Home Medications
Allergies reflects when Allergies were last updated in [employer].
Home Medications with original date entered in [employer]
Allergy/Medication List:
Allergies
Allergy/AdvReac Type Severity Reaction Status Date / Time
No Known Drug Allergies Allergy Unknown Verified 04/05/25 09:44
pollen extracts Allergy Congestion Verified 04/05/25 09:44
Home Medications
aspirin 81 mg tablet,delayed release 81 mg PO DAILY ##0 07/03/14
nitroglycerin 0.4 mg sublingual tablet 0.4 mg sublingual [id number] PRN chest pain #30 tabs 07/03/14
clopidogrel 75 mg tablet 75 mg PO DAILY ##90 03/03/15
furosemide 40 mg tablet 40 mg PO MOWEFR 03/03/15
alprazolam 0.25 mg tablet (Xanax) 0.25 mg PO HS PRN anxiety, insomnia 04/21/22
atorvastatin 40 mg tablet 40 mg PO DAILY 04/21/22
carvedilol 12.5 mg tablet (Coreg) 12.5 mg PO BID 04/21/22
empagliflozin 25 mg tablet (Jardiance) 25 mg PO DAILY 04/21/22
estradiol 0.01% (0.1 mg/gram) vaginal cream (Estrace) 1 g vaginal MOWEFR 04/21/22
metformin 1,000 mg tablet 1,000 mg PO BID 04/21/22
Probiotic 1 cap PO DAILY 03/25/25
levothyroxine 112 mcg tablet (Synthroid) 112 mcg PO DAILY 03/25/25
losartan 25 mg tablet 25 mg PO DAILY 03/25/25
multivitamin 1 tab PO DAILY 03/25/25
semaglutide 1 mg/dose (4 mg/3 mL) subcutaneous pen injector (Ozempic) 1 mg SC SA 03/25/25
trimethoprim 100 mg tablet 100 mg PO DAILY 03/25/25
Review of Systems
-
History Source: Patient
Constitutional: Denies Fever or Chills
EENT: Denies Sore Throat
Respiratory: Denies Cough or Trouble Breathing
Cardiac: Denies Chest Pain, Diaphoresis, Palpitations or Syncope
Abdomen/GI: Reports Abdominal Pain, Nausea, Vomiting, Constipated and Pain; Denies Diarrhea
: Reports Frequency, Difficulty Voiding (past several days trickle of urine, did not realize was retaining ) and Ferreira
Skin: Denies Rash
Neurological: Denies Dizzy, Headache, Weakness or Numbness
Physical Exam
Vital Signs
Vital Signs
Temp Pulse Resp BP Pulse Ox
98.2 F 76 22 130/71 95
04/05/25 09:41 04/05/25 20:00 04/05/25 20:00 04/05/25 20:00 04/05/25 20:00
Physical Exam
General: Well Developed, Well Nourished, Conversant and Pain
HEENT: NormoCephalic, Moist mucous membranes and Atraumatic
Respiratory: Clear and Non Labored Respirations; No Wheezes, Rales, Rhonchi or Crackles
Cardiac: S1/S2 and Regular Rhythm; No Murmur, Rub or Gallop
Breast: Deferred by me
GI: Tender and Distended; No Normal Bowel Sounds (absent bowel sounds ) or Organomegaly
Rectal: Deferred by Provider
Genito-urinary: Deferred by me
Musculoskeletal: No Clubbing, No Cyanosis and No Edema
Skin: Warm and IV/Catheter Site; No Rash
Neuro: Awake, AO x 3 and Nonfocal/grossly intact
Psych: Intact Judgment/Insight and Anxious
Laboratory Results
-
04/05/25 20:41
04/05/25 12:43
Laboratory Results
Total Bilirubin 0.9 mg/dl (0.2-1.3) 04/05/25 12:43
AST 41 U/L (14-36) H 04/05/25 12:43
ALT 48 U/L (0-35) H 04/05/25 12:43
Alkaline Phosphatase 60 U/L (38-126) 04/05/25 12:43
Troponin I < 0.012 ng/ml 04/05/25 19:44
Lipase 53 U/L (23-300) 04/05/25 12:43
Data Reviewed
-
CT Scan: Report Reviewed by me (Abd/Pel: Increased large volume colonic stool. Increased distention of the colon which may be related to the history of an attempted enema. Findings are suspicious for a fecal impaction with stool distention of the
rectum noted on this exam and on the recent CT from earlier in the same day. Soft tis)
Medical Tests (Nuc Med, Echo, EKG etc): Report Reviewed by me (EKG: NORMAL SINUS RHYTHM)
Lab Data: Labs Reviewed by me
Impression/Plan
-
IMPRESSION/PLAN:
#abdominal pain and constipation 2/2 constipation vs. bowel obstruction vs. urinary retention vs. UTI
s/p cystocele and rectocele surgery by Dr. Francis on Tuesday
large bowel movement in ED post enema, increased pain, CT repeated (see below)
EKG: NORMAL SINUS RHYTHM
Abd/Pel CT: Increased large volume colonic stool. Increased distention of the colon which may be related to the history of an attempted enema. Findings are suspicious for a fecal impaction with stool distention
of the rectum noted on this exam and on the recent CT from earlier in the same day. Soft tissue thickening in the region of the midline perineum and anus is presumably postoperative from the
recent bladder prolapse surgery and could also be contributing to a degree of obstruction at the level of the anus.
No appreciable colonic stricture or mass.
Lobular region of increased attenuation in the inferior pelvis anterior to the rectum probably reflecting postoperative changes from the bladder prolapse surgery, less likely a small pelvic hematoma given
the presence of similar soft tissue on the prior CT.
- Admit to med/surg
- IVF NSS 80cc/hr
- clear liquid diet
- bowel regimen
- I & Os
- pain regimen
- antiemetics
#urinary retention
s/p cystocele and rectocele surgery by Dr. Francis on Tuesday
- Ferreira inserted
- Consult Urology
#hypertension
- continue carvedilol and losartan
#hyperlipidemia
- continue atorvastatin
#type 2 diabetes
- AccuCheck AC & HS
- SSI
- hold Jardiance and metformin
- Hold semaglutide
#Sigifredo thyroiditis
- continue levothyroxine
#CAD
s/p cardiac cath with stents x5
- continue aspirin and clopidogrel
#anxiety
- continue PRN alprazolam
Code status: full code
DVT prophylaxis: lovenox sq
--- NOTE | 2025-04-05 21:34 | W.PN.UPDATE ---
Update Note
Progress Note Update
Patient seen in conjunction with EULALIO. I agree with the findings on history and physical. I concur with assessment and plan unless stated otherwise.
Briefly, this is a 61-year-old female with past medical history significant for diabetes, hypothyroid, hypertension, CAD, nephrolithiasis, recent cystocele/rectocele surgery coming into the emergency department with acute urinary retention and fecal
impaction. Failure of initial management with laxatives in the ED. Zarephath stool will have significant increased tenderness in the abdomen after laxatives.
Vital signs were stable with a blood pressure of 130/70 pulse of 101 and temp of 98.2. She is satting 98% on room air. CBC was unremarkable, electrolytes were notable for a sodium of 130 but otherwise normal BUN/creatinine were normal. Glucose
was normal. Slight increase in AST and ALT to 40s. Lactic acid was negative.
CT of the abdomen pelvis shows increased large volume colonic stool, increased distention of the colon which may be related to the history of and attempted enema, fecal impaction suspected, there is also soft tissue thickening in the region of the
midline perineum and anus which is presumably postoperative and could be contributing to the degree of obstruction.
She did have a bowel movement after enema in the ED but continued to have abdominal distention and tenderness. Did not want to tolerate additional oral laxatives at that time.
Assessment and plan
Fecal impaction�likely postsurgical. Responded to enema. Was having a bowel movement but still impacted.
- Admit to MedSurg
- Attempt digital rectal disimpaction
- Clear liquid diet for now
- Continue laxatives with magnesium citrate, MiraLAX, senna Colace
- Rectal suppository prn, hold further enemas for now
- Given degree of fecal impaction, this case was discussed with surgery and recommendation was made for GI for possible flex sig
- Case was discussed with the patient's surgeon, recommended GI consultation in the morning if needed
Urinary retention -likely secondary to fecal impaction and constipation, and no signs of acute infection
- urinary catheter placed
- Treat constipation
- Urology consult
Other issues including CAD, hypothyroid, hypertension and diabetes to be managed as below
-Continue aspirin and statin Plavix and carvedilol
-Sliding scale insulin for now hold metformin
-Continue for losartan with hold parameters
DVT prophylaxis Lovenox subcu next
CODE STATUS�full code
--- NOTE | 2025-04-05 23:11 | PTCARENOTE ---
Pt arrived onto floor @2311. Pt AAOx3 and able to ambulate into room with minimal assistance. Pt with no complaints of SOB at this time. Pt oriented to room and call jolly; will continue to monitor
[2025-04-05] MEDS: COLACE 100 MG PO (23:43)
[2025-04-05] MEDS: SENOKOT 8.6 MG PO (23:43)
[2025-04-06 00:04] LABS: Glucose - Point of Care 114 mg/dl (70-99)
[2025-04-06] MEDS: SYNTHROID 112 MCG PO (04:05)
[2025-04-06 07:07] VITALS: BP 109/60
[2025-04-06 07:54] LABS: Glucose - Point of Care 74 mg/dl (70-99)
[2025-04-06] MEDS: COZAAR 25 MG PO (08:05)
[2025-04-06] MEDS: COLACE 100 MG PO (08:05)
[2025-04-06] MEDS: TRIMPEX 100 MG PO (08:05)
[2025-04-06] MEDS: ASPIR LOW (ENTERIC COATED) 81 MG PO (08:07)
[2025-04-06] MEDS: SENOKOT 8.6 MG PO (08:07)
[2025-04-06] MEDS: CITROMA 300 ML PO (08:07)
[2025-04-06] MEDS: PLAVIX 75 MG PO (08:07)
[2025-04-06] MEDS: COREG 12.5 MG PO ×2 (08:07→20:55)
[2025-04-06] MEDS: VISBIOME 1 CAP PO (08:07)
[2025-04-06] MEDS: LIPITOR 40 MG PO (08:07)
[2025-04-06] MEDS: TORADOL 10 MG IV ×2 (08:24→20:56)
[2025-04-06 09:08] LABS: Blood Urea Nitrogen 16 mg/dl (7-17); Calcium 9.2 mg/dl (8.4-10.2); Carbon Dioxide 19 mmol/L (22-30); Chloride 110 mmol/L (98-107); Estimated Creatinine Clearance 68 ml/min; Glucose 64 mg/dl (70-99); Potassium 5.1 mmol/L (3.5-5.1); Sodium 140 mmol/L (135-145); eGFR > 60.00
--- NOTE | 2025-04-06 09:08 | W.PN.HOSP.TC ---
Today's Communication/Plan
-
Bowel regimen
Assessment / Plan
Assessment / Plan
Physical exam:
General: Acutely ill
HEENT: Normocephalic, Atraumatic and Moist Mucous Membranes
Respiratory: Clear to Auscultation; Negative Wheezes, Rales or Rhonchi
Cardiac: Regular Rhythm and S1/S2, systolic murmur
GI: Soft, Nontender and Nondistended, hypoactive bowel sounds
Musculoskeletal: No Clubbing, No Cyanosis and No Edema
Neuro: Awake, Alert and Oriented, no neurological deficits
Psych: Calm
A/P:
Severe constipation postop in the setting of also narcotic use and gastroparesis:
On clear liquid diet. I was going to advance to low residue diet but will switch back to clear liquid diet until we know for sure there is no need for procedures.
Bowel regimen
Patient had a flex sigmoid or colonoscopy last year and does not recall anything out of the ordinary. She also prefers to change to our GI team locally.
Will request GI consult for further eval
Acute urinary retention:
Ferreira catheter in place
Urology consult appreciated
PT eval
Cystocele and rectocele:
Status post anterior and posterior colporrhaphy and perineoplasty
Appreciated urology surgeon eval-discussed with surgeon today.
On pain medications with narcotics as needed
CAD:
Continue current anti-ischemic regimen, on DAPT statins beta-blockers and ARB.
Multiple cardiac stents in the past
Chest pain-free
Cardiac valvulopathy:
I do not have records or echo but loud murmur and she tells me she was cleared for surgery in the setting of known valvulopathy.
Hypertension:
Continue current antihypertensive regimen
Hyperlipidemia:
Continue home statin
Hypothyroidism:
Continue levothyroxine 112 mcg p.o. daily
Recurrent UTIs:
On Trimethoprim for antibiotic suppression, long-term
Also on probiotic
DVT prophylaxis:
Lovenox SQ
CODE STATUS:
Full code
Total time spent on today's encounter was 56 minutes which included time spent in counseling the patient/family regarding diagnosis and treatment plan as listed above, goals of care, and symptom management. Case was discussed with nursing staff,
specialists, and care coordinators/case management. All labs and imaging personally reviewed by me. Remainder the time spent in detailed review of previous records, lab data, imaging, and other medical provider documentation.
Anticipated Discharge: 24 - 48 hours
Subjective/Interval History
-
Date of Service: April 06, 2025
Patient still has some rectal discomfort but feels better overall than last evening. No chest pain or shortness of breath. Afebrile
Objective Data
-
Labs:
Laboratory Results
04/06/25
08:01
Sodium 140
Potassium 5.1
Chloride 110 H
Carbon Dioxide 19 L
BUN 16
Creatinine 0.7
Glucose 64 L
Calcium 9.2
Vital Signs:
Vital Signs
Temp Pulse Resp BP Pulse Ox
98.2 F 78 16 109/60 98
04/06/25 07:07 04/06/25 08:05 04/06/25 07:07 04/06/25 08:05 04/06/25 07:07
I&O
04/05/25 04/06/25 04/07/25
06:59 06:59 06:59
Output Total 1000 / 1000
Balance -1000 / -1000
--- NOTE | 2025-04-06 10:25 | CONS.URO ---
Medical History
History of Present Illness
Amarilys is a 64-year-old woman who is admitted overnight with severe constipation and urinary retention.
Patient is status post an anterior and posterior colporrhaphy for a cystocele and rectocele on April 01 that was uncomplicated. The patient was discharged home same day after surgery. She developed worsening pain and was taking oxycodone
immediately postop and then was switched to Dilaudid orally for worsening pain. She continued on ibuprofen and Tylenol however the patient had a history of gastroparesis and severe constipation. The patient was able to have a bowel movement
postoperatively and presented to the emergency room on April 05. An enema was performed in the emergency room after a CT scan confirmed the presence of severe constipation. The patient developed severe abdominal pain and a repeat CT
scan was performed that demonstrated her ongoing constipation there is no evidence of bowel complications.
The patient and family had a bowel movement overnight following her enema and her symptoms improved.
Her vital signs remained stable and her blood work was benign. No evidence of an elevated white count.
Patient reports bruising around her perianal and left gluteal region. Denies significant vaginal bleeding. Denies rectal bleeding. Denies abnormal vaginal discharge. Denies vaginal pain or perineal pain.
While in the emergency room the patient had acute urinary retention and a Pacheco catheter was placed. Pacheco catheter remains in place this morning.
Past Medical History
Past Medical History: CAD and Other (Gastroparesis, diabetes)
Past Surgical History: Other (s/p anterior and posterior colporrhaphy and perineoplasty)
Social History
Tobacco: Non-smoker
Alcohol: Occasional
Drug: None
Personal:
Living: With Family
Family History
Family History: Reviewed & Not Pertinent
Allergies/Home Medications
Allergies
Allergy/AdvReac Type Severity Reaction Status Date / Time
pollen extracts Allergy Congestion- Verified 04/05/25 23:07
seasonal
Home Medications
�Medication �Instructions �Recorded �Confirmed �Type
aspirin 81 mg tablet,delayed 81 mg PO DAILY ##0 07/03/14 04/05/25 Rx
release
nitroglycerin 0.4 mg sublingual 0.4 mg sublingual [id number] PRN 07/03/14 04/05/25 Rx
tablet chest pain #30 tabs
clopidogrel 75 mg tablet 75 mg PO DAILY ##90 03/03/15 04/05/25 Rx
furosemide 40 mg tablet 40 mg PO MOWEFR 03/03/15 04/05/25 History
alprazolam 0.25 mg tablet (Xanax) 0.25 mg PO HS PRN anxiety, insomnia 04/21/22 04/05/25 History
atorvastatin 40 mg tablet 40 mg PO DAILY 04/21/22 04/05/25 History
carvedilol 12.5 mg tablet (Coreg) 12.5 mg PO BID 04/21/22 04/05/25 History
empagliflozin 25 mg tablet 25 mg PO DAILY 04/21/22 04/05/25 History
(Jardiance)
estradiol 0.01% (0.1 mg/gram) 1 g vaginal MOWEFR 04/21/22 04/05/25 History
vaginal cream (Estrace)
metformin 1,000 mg tablet 1,000 mg PO BID 04/21/22 04/05/25 History
Probiotic 1 cap PO DAILY 03/25/25 04/05/25 History
levothyroxine 112 mcg tablet 112 mcg PO DAILY 03/25/25 04/05/25 History
(Synthroid)
losartan 25 mg tablet 25 mg PO DAILY 03/25/25 04/05/25 History
multivitamin 1 tab PO DAILY 03/25/25 04/05/25 History
semaglutide 1 mg/dose (4 mg/3 mL) 1 mg SC SA 03/25/25 04/05/25 History
subcutaneous pen injector (Ozempic)
trimethoprim 100 mg tablet 100 mg PO DAILY 03/25/25 04/05/25 History
Review of Systems
-
History Source: Patient
Constitutional: Reports No Symptoms
EENT: Reports No Symptoms
Respiratory: Reports No Symptoms
Cardiac: Reports No Symptoms
Abdomen/GI: Reports Other (see hpi)
: Reports Pacheco
Musculoskeletal: Reports No Symptoms
Skin: Reports No Symptoms
Neurological: Reports No Symptoms
Endocrine: Reports No Symptoms
Hematologic/Lymphatic: Reports No Symptoms
Psych: Reports No Symptoms
Physical Exam
Vital Signs
Vital Signs
Temp Pulse Resp BP Pulse Ox
98.2 F 78 16 109/60 98
04/06/25 07:07 04/06/25 08:05 04/06/25 07:07 04/06/25 08:05 04/06/25 07:07
Lab / Testing Results
Laboratory Results
04/05/25 20:41
04/06/25 08:01
Physical Exam
exam: no active vaginal bleeding, +ecchymosis around perineum, nontender, no discharge, no prolapse, pacheco catheter in place.
Assessment / Plan
-
Assessment and Plan:
Amarilys is a 64-year-old woman who is postop day 5 status post anterior and posterior colporrhaphy and perineoplasty for cystocele and rectocele. She was admitted for severe constipation which responded to an enema overnight. She also developed acute
urinary retention and has a Pacheco catheter in place. I suspect that the patient's acute urinary retention was due to her severe constipation and her urinary symptoms will return to normal once the patient is having regular bowel movements. The
patient's ecchymosis around her perineum and left gluteal region is consistent with normal postoperative findings. There is no evidence of a hematoma developing based off of her CT scans which were reviewed. The patient has a stable hemoglobin
level and no signs of anemia thus no concern for any enlarging hematomas or bleeding.
1. Urinary retention
- Pacheco to remain in place until Tuesday and will be removed in the urogynecology office with Dr. Francis
2. Postoperative management after prolapse repair
- Exam findings consistent with normal postoperative course
- No concern for any postoperative bleeding or infection
- Constipation to be managed by primary medicine team and GI
Christopher Francis MD
[2025-04-06 11:57] LABS: Glucose - Point of Care 89 mg/dl (70-99)
[2025-04-06] MEDS: MIRALAX 17 GRAMS PO (12:14)
[2025-04-06] MEDS: NSS 1000 IV ×2 (12:17→23:43)
[2025-04-06 15:37] VITALS: BP 121/64
[2025-04-06 16:38] LABS: Glucose - Point of Care 160 mg/dl (70-99)
[2025-04-06] MEDS: LOVENOX 40 MG SC (17:40)
[2025-04-06] MEDS: TYLENOL 650 MG PO (20:55)
[2025-04-06] MEDS: COLACE PO (21:04)
[2025-04-06] MEDS: SENOKOT PO (21:04)
[2025-04-06 21:45] LABS: Glucose - Point of Care 93 mg/dl (70-99)
[2025-04-07 00:14] VITALS: BP 98/56
[2025-04-07] MEDS: SYNTHROID 112 MCG PO (04:01)
[2025-04-07] MEDS: TYLENOL 650 MG PO (04:01)
[2025-04-07] MEDS: TORADOL 10 MG IV (04:02)
[2025-04-07 07:35] LABS: Glucose - Point of Care 77 mg/dl (70-99)
[2025-04-07 07:40] LABS: Hematocrit 33.6 % (37.0-47.0); Hemoglobin 11.3 g/dL (12.0-16.0); Mean Corp Hgb Conc. 33.6 g/dL (33.0-37.0); Mean Corpuscular Volume 92.3 fL (81.0-99.0); Platelet Count 203 10^3/uL (130-400); Red Cell Dist. Width 13.1 % (11.5-14.5)
[2025-04-07 07:44] VITALS: BP 124/66
[2025-04-07] MEDS: PLAVIX 75 MG PO (07:50)
[2025-04-07] MEDS: ZOFRAN 4 MG IV (07:50)
[2025-04-07] MEDS: SENOKOT 8.6 MG PO (07:50)
[2025-04-07] MEDS: COREG 12.5 MG PO (07:50)
[2025-04-07] MEDS: ASPIR LOW (ENTERIC COATED) 81 MG PO (07:50)
[2025-04-07] MEDS: COLACE 100 MG PO (07:50)
[2025-04-07] MEDS: TRIMPEX 100 MG PO (07:50)
[2025-04-07] MEDS: MIRALAX 17 GRAMS PO (07:50)
[2025-04-07] MEDS: COZAAR 25 MG PO (07:51)
[2025-04-07] MEDS: VISBIOME 1 CAP PO (07:51)
[2025-04-07] MEDS: LIPITOR 40 MG PO (07:51)
[2025-04-07 08:03] LABS: Blood Urea Nitrogen 11 mg/dl (7-17); Calcium 8.6 mg/dl (8.4-10.2); Carbon Dioxide 19 mmol/L (22-30); Chloride 112 mmol/L (98-107); Estimated Creatinine Clearance 79 ml/min; Glucose 65 mg/dl (70-99); Potassium 4.6 mmol/L (3.5-5.1); Sodium 137 mmol/L (135-145); eGFR > 60.00
[2025-04-07 11:13] LABS: Glucose - Point of Care 140 mg/dl (70-99)
[2025-04-07 12:30] VITALS: BP 127/64
--- NOTE | 2025-04-07 13:39 | W.PN.HOSP.TC ---
Today's Communication/Plan
-
D/C planning
Assessment / Plan
Assessment / Plan
Physical exam:
General: No acute distress
HEENT: Normocephalic, Atraumatic and Moist Mucous Membranes
Respiratory: Clear to Auscultation; Negative Wheezes, Rales or Rhonchi
Cardiac: Regular Rhythm and S1/S2, systolic murmur
GI: Soft, Nontender and Nondistended, hypoactive bowel sounds
Musculoskeletal: No Clubbing, No Cyanosis and No Edema
Neuro: Awake, Alert and Oriented, no neurological deficits
Psych: Calm
A/P:
Severe constipation postop in the setting of also narcotic use and gastroparesis:
Advance diet per GI
Bowel regimen
Patient had a flex sigmoid or colonoscopy last year and does not recall anything out of the ordinary. She also prefers to change to our GI team locally.
GI eval appreciated and cleared for d/c
Acute urinary retention:
Ferreira catheter in place
Urology consult appreciated
PT eval
Cystocele and rectocele:
Status post anterior and posterior colporrhaphy and perineoplasty
Appreciated urology surgeon eval-discussed with surgeon today.
On pain medications with narcotics as needed
CAD:
Continue current anti-ischemic regimen, on DAPT statins beta-blockers and ARB.
Multiple cardiac stents in the past
Chest pain-free
Cardiac valvulopathy:
I do not have records or echo but loud murmur and she tells me she was cleared for surgery in the setting of known valvulopathy.
Hypertension:
Continue current antihypertensive regimen
Hyperlipidemia:
Continue home statin
Hypothyroidism:
Continue levothyroxine 112 mcg p.o. daily
Recurrent UTIs:
On Trimethoprim for antibiotic suppression, long-term
Also on probiotic
DVT prophylaxis:
Lovenox SQ
CODE STATUS:
Full code
Time spent 35 minutes
Anticipated Discharge: Today
Subjective/Interval History
-
Date of Service: April 07, 2025
Patient is having bowel movements. She has abdominal discomfort on and off. She is concerned advancing her diet to solid and would like to be kept on liquid but ready to move forward. Afebrile.
Objective Data
-
Labs:
Laboratory Results
04/07/25
06:59
WBC 5.2
Hgb 11.3 L
Hct 33.6 L
Plt Count 203
Sodium 137
Potassium 4.6
Chloride 112 H
Carbon Dioxide 19 L
BUN 11
Creatinine 0.6
Glucose 65 L
Calcium 8.6
Vital Signs:
Vital Signs
Temp Pulse Resp BP Pulse Ox
98.2 F 63 18 124/66 98
04/07/25 07:44 04/07/25 07:44 04/07/25 07:44 04/07/25 07:44 04/07/25 07:44
I&O
04/06/25 04/07/25 04/08/25
06:59 06:59 06:59
Intake Total 1330 / 1330
Output Total 1000 / 1000 2300 / 2300
Balance -1000 / -1000 -970 / -970
--- NOTE | 2025-04-07 13:41 | W.DCSUMMARY ---
Discharge Summary
Discharge Data
Date of Admission: 04/05/25
Date of Discharge: 04/07/25
-
Pending Results: No
Hospital Course
Patient is 64 years old female with history of hypertension, hyperlipidemia, hypothyroidism, CAD, cardiac valvulopathy, cystocele and rectocele is status post anterior and posterior colporrhaphy and perineoplasty recently, came into the hospital
with severe constipation and urinary retention. Patient had a Ferreira catheter placed. Urology consulted who was the same doctor who did surgery on her recently and he will continue to follow her up as outpatient. She had enema and aggressive bowel
regimen and she was able to move her bowels. GI was consulted. Patient also requested to follow-up with GI locally. Patient is doing better overall. GI cleared her for discharge. She will be discharged in relatively stable condition today.
Discharge Plan
-
Patient Disposition: Home with Home Care
Discharge Diagnosis/Procedures: Severe constipation. Acute urinary retention. Gastroparesis. History of recent anterior and posterior colporrhaphy and perineoplasty.
Diet: Low Residue
Activity: As tolerated
Blood Work: Please PCP to order CBC, BMP within 1 week.
Referrals:
Cyndi Valle MD [Active, Gastroenterology] - in two to four weeks
Bradley Mejias MD [Family Provider, Family Practice] - in less than 1 week
Christopher Francis MD [Active, Urology] - in one to two weeks
Prescriptions:
New
polyethylene glycol 3350 17 gram Powder In Packet
17 g PO DAILY 14 Days Qty: 14 0RF
Continued
aspirin 81 MG tablet,delayed release (DR/EC)
81 mg PO DAILY Qty: 0 0RF
nitroglycerin 0.4 MG tablet, sublingual
0.4 mg sublingual [id number] PRN (Reason: chest pain) Qty: 30 2RF
Patient Comments:
PT STATES SHE HAS NOT TAKEN IN YEARS
furosemide 40 MG tablet
40 mg PO MOWEFR
clopidogrel 75 MG tablet
75 mg PO DAILY Qty: 90 3RF
carvedilol [Coreg] 12.5 mg Tablet
12.5 mg PO BID
alprazolam [Xanax] 0.25 mg Tablet
0.25 mg PO HS PRN (Reason: anxiety, insomnia)
estradiol [Estrace] 0.01 % (0.1 mg/gram) Cream
1 g VAGINAL MOWEFR
Jardiance 25 mg Tablet
25 mg PO DAILY
atorvastatin 40 MG tablet
40 mg PO DAILY
metformin 1,000 MG tablet
1,000 mg PO BID
multivitamin Tablet
1 tab PO DAILY
losartan 25 mg Tablet
25 mg PO DAILY
levothyroxine [Synthroid] 112 mcg tablet
112 mcg PO DAILY
Probiotic
1 cap PO DAILY
trimethoprim 100 mg Tablet
100 mg PO DAILY
Held
Ozempic 1 mg/dose (4 mg/3 mL) Pen Injector
1 mg SC SA
Hold Instructions: Resume on 04/15/25.
Discharge Orders:
Discharge Patient (As Directed); Ordered 04/07/25
Ordered By: Graeme Ocampo
Discharge Date and Time
Print Language: CHADIAN
[2025-04-07 15:43] VITALS: BP 120/61
--- NOTE | 2025-04-07 16:04 | CM ---
Met with patient and at bedside
Pharmacy verified: [facility] @ [address] [facility] [address]
Lives w/ and [id number]; multilevel home; lives on 1st floor; bathroom has tub w/ shower
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
No SNF or Home Health utilization history
will transport home
Plan: Discharge to home when medically stable; no needs anticipated
--- NOTE | 2025-04-07 16:27 | CON.GI ---
Consultation
-
Date/Time Consultation Requested: 04/06/2025
Date/Time Consultation Performed: 04/07/2025
Requesting Provider:
Performing Provider:
Reason for Consultation: constipation post op
Medical History
Chief Complaint / HPI
Chief Complaint: abdominal pain,constipaton
History of Present Illness:
This is a 64 year old female with PMH of hypertension, hyperlipidemia, type 2 diabetes, Hashimotos thyroiditis, CAD s/p stents on aspirin and Plavix, anxiety, colon polyps, family history of colon cancer- brother IBS, SIBO, gastroparesis, rectocele,
cystocele, status post anterior and posterior colporrhaphy for a cystocele and rectocele on April 01 with presented to the ER 04/05 for abdominal pain. She was given Vicodin for postop pain and then subsequently was started on
Dilaudid for more severe pain and she had her last bowel movement prior to the surgery on the . She said she was told to take a stool softener and MOM but since she still did not have a bowel movement told to take Senokot also but she still did
not have a bowel movement for the last couple days after the surgery and she presented to the emergency room with abdominal distention and pain on the . She was noted to have urinary retention and had a Ferreira catheter was placed and felt
significantly improved after the catheter but was also noted to have constipation and fecal impaction on the initial CT. She then got an enema but her abdominal pain worsened after that and had a repeat CAT scan was ruled out for bowel perforation,
postop changes noted but no evidence of abscess or infection on CT and subsequently had a large bowel movement and felt much better. She denies any nausea or vomiting. She follows up with her GI Dr. Steward at [facility] he retired and she saw another
provider there once after he retired. She says she had a colonoscopy and endoscopy this year, endoscopy was normal, colonoscopy she had a few small polyps removed. She has also been seen by Dr. Francis since admission. She feels much better today
was tolerating clear liquids. She says she was also diagnosed with gastroparesis and SIBO about a year ago and was evaluated at [facility] also was treated for SIBO. She also has been on Ozempic prior to that was on Trulicity but because of
insurance reasons had to switch to Ozempic. She also has a history of IBS and was more diarrhea predominant but since was diagnosed with gastroparesis last year and on GLP-1 agonist has been more constipated and sometimes takes a stool softener.
No rectal bleeding or melena. No recent weight loss no fevers or chills. She denies any symptoms of reflux currently.
Past Medical History
Past Medical History: Other (hypertension, hyperlipidemia, type 2 diabetes, Hashimotos thyroiditis, CAD s/p stents, anxiety, colon polyps, IBS, rectocele, cystocele, SIBO, gastroparesis)
Past Surgical History: Other (s/p anterior and posterior colporrhaphy and perineoplasty, cardiac cath with stents x5, hysterectomy, ureteroscopyx5 )
Social History
Tobacco: Non-Smoker
Alcohol: Occasional
Drug: None
Personal:
Living: With Family
Family History
Family History: Other (brother- colon cancer)
Allergies / Home Medications
Allergy/AdvReac Type Severity Reaction Status Date / Time
pollen extracts Allergy Congestion- Verified 04/05/25 23:07
seasonal
�Medication �Instructions �Recorded
aspirin 81 mg tablet,delayed 81 mg PO DAILY ##0 07/03/14
release
nitroglycerin 0.4 mg sublingual 0.4 mg sublingual [id number] PRN 07/03/14
tablet chest pain #30 tabs
clopidogrel 75 mg tablet 75 mg PO DAILY ##90 03/03/15
furosemide 40 mg tablet 40 mg PO MOWEFR 03/03/15
alprazolam 0.25 mg tablet (Xanax) 0.25 mg PO HS PRN anxiety, insomnia 04/21/22
atorvastatin 40 mg tablet 40 mg PO DAILY 04/21/22
carvedilol 12.5 mg tablet (Coreg) 12.5 mg PO BID 04/21/22
empagliflozin 25 mg tablet 25 mg PO DAILY 04/21/22
(Jardiance)
estradiol 0.01% (0.1 mg/gram) 1 g vaginal MOWEFR 04/21/22
vaginal cream (Estrace)
metformin 1,000 mg tablet 1,000 mg PO BID 04/21/22
Probiotic 1 cap PO DAILY 03/25/25
levothyroxine 112 mcg tablet 112 mcg PO DAILY 03/25/25
(Synthroid)
losartan 25 mg tablet 25 mg PO DAILY 03/25/25
multivitamin 1 tab PO DAILY 03/25/25
semaglutide 1 mg/dose (4 mg/3 mL) 1 mg SC SA 03/25/25
subcutaneous pen injector (Ozempic)
trimethoprim 100 mg tablet 100 mg PO DAILY 03/25/25
Review of Systems
-
Unable to obtain full review of systems at this time due to: Other
All other systems: A 12 pt ROS was Negative except as stated above in HPI
Vital Signs
Temp Pulse Resp BP Pulse Ox
98.2 F 65 18 120/61 99
04/07/25 15:43 04/07/25 15:43 04/07/25 15:43 04/07/25 15:43 04/07/25 15:43
Physical Exam
Exam
General: No Apparent Distress
Respiratory: Clear
Cardiac: Regular Rhythm
GI: Soft, Non Tender, Non Distended and Normal Bowel Sounds
Skin: Warm
Neuro: Awake, Alert and Oriented
Psych: Calm
Results
WBC 5.2 10^3/uL (4.8-10.8) 04/07/25 06:59
Hgb 11.3 g/dL (12.0-16.0) L 04/07/25 06:59
Hct 33.6 % (37.0-47.0) L 04/07/25 06:59
MCV 92.3 fL (81.0-99.0) 04/07/25 06:59
Plt Count 203 10^3/uL (130-400) 04/07/25 06:59
Absolute Neuts (auto) 7.1 10^3/uL (1.4-6.5) H 04/05/25 20:41
Sodium 137 mmol/L (135-145) 04/07/25 06:59
Potassium 4.6 mmol/L (3.5-5.1) 04/07/25 06:59
Chloride 112 mmol/L (98-107) H 04/07/25 06:59
Carbon Dioxide 19 mmol/L (22-30) L 04/07/25 06:59
BUN 11 mg/dl (7-17) 04/07/25 06:59
Creatinine 0.6 mg/dL (0.6-1.0) 04/07/25 06:59
Calcium 8.6 mg/dl (8.4-10.2) 04/07/25 06:59
Total Bilirubin 0.9 mg/dl (0.2-1.3) 04/05/25 12:43
AST 41 U/L (14-36) H 04/05/25 12:43
ALT 48 U/L (0-35) H 04/05/25 12:43
Alkaline Phosphatase 60 U/L (38-126) 04/05/25 12:43
Lipase 53 U/L (23-300) 04/05/25 12:43
Diagnostic Image Results:
04/05/2025 CT Abd/pel Without Iv Or Oral
IMPRESSION:
Increased large volume colonic stool. Increased distention of the colon which may be related to the history of an attempted enema. Findings are suspicious for a fecal impaction with stool distention of the rectum noted on this exam and on the recent
CT from earlier in the same day. Soft tissue thickening in the region of the midline perineum and anus is presumably postoperative from the recent bladder prolapse surgery and could also be contributing to a degree of obstruction at the level of the
anus.
No appreciable colonic stricture or mass.
Lobular region of increased attenuation in the inferior pelvis anterior to the rectum probably reflecting postoperative changes from the bladder prolapse surgery, less likely a small pelvic hematoma given the presence of similar soft tissue on the
prior CT.
04/05/2025 CT Abd/pel W Iv And Oral Contr
IMPRESSION:
1. There is much stool in the rectal vault consistent with history of constipation/hard stool
2. There are pulmonary nodules in the right lower lobe
Prior GI Procedures:
EGD: 2024 with at [facility] normal per patient
Colonoscopy: 2024 with at [facility] had few small polyps per patient
Assessment / Plan
-
1. Postop abdominal pain secondary to severe constipation and urinary retention secondary to narcotics postop. Feeling much improved after she received enema and had a large bowel movement and also had Ferreira catheter for urinary retention which
has since been removed and she was able to urinate on her own. started on Levsin sublingual as needed also told her to use MiraLAX and senna daily and if still constipated will need to be started on prescription laxatives as OP. She did hold the
Ozempic for a week prior to the surgery and has not yet restarted it, I told her to hold it this week also and restart next week.
2. Gastroparesis was managing pretty well with dietary modifications. I do think the GLP-1 agonist could have made her gastroparesis worse. She most likely has underlying diabetic gastroparesis. Continue low residue low-fat meals and she does
eat small frequent meals which has helped also.
3. History of SIBO was treated last year.
4. She does have a history of IBS used to be diarrhea predominant but over the past 1 year has been more constipation predominant most likely related to the GLP-1 agonist. Started on Levsin as needed and encouraged her to use MiraLAX and senna
every day.
5. Family history of colon cancer brother and personal history of colon polyps she is up-to-date with her colonoscopy this year she had with Dr. Steward.
6. She has mildly elevated transaminases will need to follow-up with her GI as outpatient could be related to possible fatty liver. Repeat LFTs in 1 to 2 months as outpatient
Data Reviewed
-
CT Scan: Report Reviewed by me
-
-
Thank you for consultation and allowing me to participate in the patient's care. Please call the [facility] physician during the after hours with any questions or concerns.
[2025-04-07 16:37] LABS: Glucose - Point of Care 121 mg/dl (70-99)
[2025-04-07] MEDS: LOVENOX SC (16:46)
--- NOTE | 2025-04-07 18:07 | W.PN.UPDATE ---
Update Note
Progress Note Update
Okay to DC home from a GI perspective if tolerates dinner
[2025-04-07] MEDS: LEVSIN 0.125 MG PO (18:29)
== END 2025-04-07 19:07 | disposition home or self-care (01) | DRG 392 ==
LOC: 4 WEST ACU 22:19
PROVIDERS: Nurse Practitioner; Nurse Practitioner Family; Physician Assistant; ADMITTING PHYSICIAN Internal Medicine; ATTENDING PHYSICIAN Hospitalist; CONSULT PHYSICIAN Internal Medicine Gastroenterology; EMERGENCY PHYSICIAN Emergency Medicine; FAMILY PHYSICIAN Family Medicine; OTHER PHYSICIAN Obstetrics & Gynecology
DX: K31.84 Gastroparesis (principal); R33.0 Drug induced retention of urine; T40.605A Adverse effect of unspecified narcotics, initial encounter; I10 Essential (primary) hypertension; I25.10 Atherosclerotic heart disease of native coronary artery without angina pectoris; E78.5 Hyperlipidemia, unspecified; Z79.84 Long term (current) use of oral hypoglycemic drugs; Z79.890 Hormone replacement therapy; Z79.85 Long-term (current) use of injectable non-insulin antidiabetic drugs; F41.9 Anxiety disorder, unspecified; K56.41 Fecal impaction; Z79.82 Long term (current) use of aspirin; Z79.899 Other long term (current) drug therapy; Z80.0 Family history of malignant neoplasm of digestive organs; E11.9 Type 2 diabetes mellitus without complications; Z79.02 Long term (current) use of antithrombotics/antiplatelets; Z86.0100 Personal history of colon polyps, unspecified; Z95.5 Presence of coronary angioplasty implant and graft
CPT/HCPCS: 51702; 74176; 74177; 80048; 80053; 81003; 81015; 82962; 83605; 83690; 84484; 85025; 85027; 87086; 93005; 96374; 96375; 96376; 97162; 99285; Q9967

== ENCOUNTER 2025-04-09 20:08 | Emergency (ER) | payer BC, SELFPAY ==
[2025-04-09 20:12] VITALS: BP 128/80
[2025-04-09 22:12] VITALS: BMI 23.3
[2025-04-09 22:16] VITALS: BP 104/74
[2025-04-09 23:00] VITALS: BP 89/67
--- NOTE | 2025-04-09 23:32 | ED.GENMED ---
History of Present Illness
General
Chief Complaint: Post Operative Problem(s)
Source: patient
Exam Limitations: none
Time Seen by Provider: 04/09/25 23:27
Nursing documentation reviewed up to this point in time: agreed with
History of Present Illness
History of Present Illness:
Note:
CHIEF COMPLAINT(S)
Urinary retention and discomfort following recent surgery.
HISTORY OF PRESENT ILLNESS
The patient is a 64-year-old female with past medical history of coronary artery disease, hypertension, gastroparesis, insulin-dependent diabetes, chronic constipation, bladder and rectal prolapse, who underwent surgery with Dr. Francis on March
. On April 01, she had a cystocele and rectocele repair. Following the surgery, she experienced urinary retention and bladder dysfunction, which led to an emergency department visit on the subsequent Tuesday. During the visit, the patient had
significant urinary retention, with approximately three liters of urine drained via catheterization. An enema was administered due to bowel impaction concerns. They thought urine retention could be related to degree of constipation. A computed
tomography scan was conducted, ruling out perforation. The patient was admitted and discharged on Tuesday, following the hospitalization from Tuesday night to Tuesday night. The catheter was removed on the morning of the current visit at the urology
office but they did not do a voiding trial. Post-removal, the patient noticed difficulty urinating and attempted various maneuvers unsuccessfully to initiate voiding. After contacting the physicians office and receiving advice to wait for possible
urinary attempts, she noted a sudden ability to void a significant amount of urine spontaneously and her physician advised her to report to the ER for putting in a new catheter. Recent symptoms include void small amount cloudy and thick urine, for
which no sample was collected. The patient currently experiences mild bladder pressure. She denies abdominal pain, no active flank pain right now. No nausea or vomiting. No fevers or chills. She reports that she often starts to develop urinary
tract infections with no symptoms and is prone to UTIs. She reports that she has had antibiotic resistant infections and she reports usually Bactrim or Macrobid worked for her.
PAST MEDICAL AND SURGICAL HISTORY
Significant for recurrent urinary tract infections and antibiotic-resistant infections requiring periodic treatment.
CHRONIC MEDICAL CONDITIONS SIGNIFICANTLY AFFECTING CARE
Recurrent urinary tract infections contributing to urinary complications and antibiotic resistance.
PHYSICAL EXAM
General: Alert and in no acute distress.
Skin: Warm and dry.
Head: Normocephalic and atraumatic.
Neck: Supple with trachea midline.
Eye, Ears, Nose, Mouth, and Throat: Oral mucosa moist.
Cardiovascular: Normal peripheral perfusion, no edema. Regular rate and rhythm, no murmurs.
Respiratory: Respirations non-labored. No wheezes, rales, rhonchi.
Gastrointestinal: Abdomen nondistended. No tenderness to palpation.
Neurological: Alert and oriented to person, place, time, and situation with no focal neurological deficit.
Psychiatric: Cooperative with appropriate mood and affect.
PROBLEM LIST
Acute:
- Urinary retention post-surgery
- Cloudy and thick urine suggestive of possible infection
- Bladder discomfort
Chronic:
- Recurrent urinary tract infections
PLAN
Conduct a repeat bladder scan to assess current status of urinary retention.
Attempt to obtain a urine sample for analysis to address concerns regarding potential urinary tract infection.
Consider antibiotic treatment as indicated, given the presence of a catheter and potential for developing an infection.
Follow up on urinary output and consider further intervention if symptoms persist or worsen.
DIFFERENTIAL DIAGNOSIS
The Differential Diagnosis includes, in no particular order and is not limited to:
- Postoperative urinary retention
- Urinary tract infection
- Bladder outlet obstruction
- Acute kidney injury secondary to urinary obstruction
- Neurogenic bladder
- Perforated bowel (ruled out by previous CT scan)
- Constipation impacting urinary function
- Dehydration
- Postoperative complications
- Infection from urethral catheterization
CHART REVIEW
Reviewed chart, reviewed discharge summary from 04/07/2025 patient seen for acute urinary retention status post surgery and was admitted to hospital for severe constipation. She had an aggressive bowel regimen performed.
Reviewed operative report from 04/01/2025 patient seen for cystocele rectocele repair
MDM/DISCHARGE
64-year-old female with a past medical history of chronic severe constipation and bladder and rectal prolapse rhythm to the ER today with concerns of acute urinary retention. This happened after surgery. She has no associated fevers or chills, no
abdominal pain with some bladder pressure. She is sent by Dr. Francis to have her catheter replaced and will follow-up in the office to have a voiding trial. Urinalysis reviewed which shows moderate bacteria with white blood cell count and
leukocyte esterase. Will initiate Bactrim as that has worked well for her in the past. Patient stable for discharge.
Phy Exam
Physical Exam
Physical Exam:
see hpi
Course
Orders/Labs/Results
Orders:
Orders
04/09/25 23:46
Urinalysis Reflex To Culture Urgent
Date Specimen was Collected: 04/10/25
Time Specimen was Collected: 00:25
04/10/25 00:25
Urine Microscopic Reflex Cult Urgent
Urine Culture Urgent
DARRICK Source: U
Specimen Description:
Date Specimen was Collected: 04/10/25
Time Specimen was Collected: 00:25
Abnormal Lab Results
04/10/25
00:25
Ur Occult Blood Reflex 4+ A
(Negative)
Leukocyte Esterase Rfl 3+ A
(Negative)
Urine WBC (Reflex) >100 A /HPF
(0-5)
Urine Bacteria (Reflex) Moderate A
(Negative)
Urine Glucose 4+ A
(Negative)
Urine Albumin (Reflex) 3+ A
(Neg - Trace)
Vital Signs
Initial and Last Documented VS:
Initial Vital Signs
Pulse Resp BP Pulse Ox
89 14 128/80 97
04/09/25 20:12 04/09/25 20:12 04/09/25 20:12 04/09/25 20:12
Last Documented Vital Signs
Temp Pulse Resp BP Pulse Ox
98.6 F 78 21 96/66 98
04/09/25 22:16 04/10/25 01:30 04/10/25 01:30 04/10/25 01:00 04/09/25 23:32
*Pulse Oximetry
SaO2: 98
Oxygen Mode of Delivery: Room air
Patient hypoxic: no
*Critical Care Note
Total Time (30-74mins, 75-104mins- exclusive of procedures): Not Applicable
ED Attending Note
-
Portions of this chart may have been created with voice recognition software.� Occasional wrong word or��sound alike� substitutions may have occurred due to the inherent limitations of voice recognition software.
Discharge Plan
Departure
Patient Disposition: Home (Routine Discharge)
Date of Disposition: 04/10/25
Time of Disposition: 01:27
Patient with high blood pressure during this ER visit?: Yes
Condition: Good
Discharge Problem:
Encounter for urinary catheter, Dysuria
Instructions: Postoperative Pain (DC), How to use a catheter to empty the bladder in females
Prescriptions:
New
sulfamethoxazole-trimethoprim [Bactrim DS] 800-160 mg tablet
1 tab PO BID 7 Days Qty: 14 0RF
No Action
aspirin 81 MG tablet,delayed release (DR/EC)
81 mg PO DAILY Qty: 0 0RF
nitroglycerin 0.4 MG tablet, sublingual
0.4 mg sublingual [id number] PRN (Reason: chest pain) Qty: 30 2RF
Patient Comments:
PT STATES SHE HAS NOT TAKEN IN YEARS
furosemide 40 MG tablet
40 mg PO MOWEFR
clopidogrel 75 MG tablet
75 mg PO DAILY Qty: 90 3RF
carvedilol [Coreg] 12.5 mg Tablet
12.5 mg PO BID
alprazolam [Xanax] 0.25 mg Tablet
0.25 mg PO HS PRN (Reason: anxiety, insomnia)
estradiol [Estrace] 0.01 % (0.1 mg/gram) Cream
1 g VAGINAL MOWEFR
Jardiance 25 mg Tablet
25 mg PO DAILY
atorvastatin 40 MG tablet
40 mg PO DAILY
metformin 1,000 MG tablet
1,000 mg PO BID
multivitamin Tablet
1 tab PO DAILY
losartan 25 mg Tablet
25 mg PO DAILY
levothyroxine [Synthroid] 112 mcg tablet
112 mcg PO DAILY
Ozempic 1 mg/dose (4 mg/3 mL) Pen Injector
1 mg SC SA
Probiotic
1 cap PO DAILY
trimethoprim 100 mg Tablet
100 mg PO DAILY
polyethylene glycol 3350 17 gram Powder In Packet
17 g PO DAILY 14 Days Qty: 14 0RF
Referrals:
Bradley Mejias MD [Family Provider, Family Practice]
Activity Restrictions/Additional Instructions:
Please have potassium level checked in 1 to 2 weeks with your primary care provider as Bactrim with losartan can occasionally raise potassium levels.
Please follow-up with Dr. Francis, please call the office tomorrow.
PLEASE RETURN TO ER SHOULD YOU DEVELOP A FEVER, FLANK PAIN, ABDOMINAL PAIN, INTRACTABLE NAUSEA OR VOMITING, CHEST PAIN OR SHORTNESS OF BREATH, OR ANY OTHER SIGNS OR SYMPTOMS WORRISOME TO YOU.
Interventions
Interventions:
*Risk Screen - Suicide Last Done: 04/09/25 20:12
*General Assessment Last Done: 04/09/25 20:12
*Neglect/Abuse Screening Last Done: 04/09/25 20:12
*ED- Fall Risk Assessment Last Done: 04/10/25 01:37
*ED COVID-19 Vaccine History Last Done: 04/09/25 20:12
*ED Influenza Vaccine History Last Done: 04/09/25 20:12
*Nursing Disposition Last Done: 04/10/25 01:37
ED-Skin Assessment Last Done: 04/09/25 22:08
Discharge Date and Time
Discharge Date/Time: 04/10/25 01:38
Print Language: MALAWIAN
[2025-04-10] VITALS: BP 102/64
[2025-04-10 00:38] LABS: Urine Character Slightly Cloudy (Clear)
[2025-04-10 00:55] LABS: Urine Squamous Cell 0-2 /LPF (Few)
[2025-04-10 00:56] LABS: Urine Red Blood Cell 0-2 /HPF (0-2); Urine White Cell >100 /HPF (0-5)
[2025-04-10 01:00] VITALS: BP 96/66
== END 2025-04-10 01:38 | disposition home or self-care (01) ==
LOC: EMR 20:08
PROVIDERS: Physician Assistant; EMERGENCY PHYSICIAN Student in an Organized Health Care Education/Training Program; FAMILY PHYSICIAN Family Medicine
DX: R30.0 Dysuria (principal); Z46.6 Encounter for fitting and adjustment of urinary device; E10.43 Type 1 diabetes mellitus with diabetic autonomic (poly)neuropathy; K31.84 Gastroparesis; I25.10 Atherosclerotic heart disease of native coronary artery without angina pectoris; I10 Essential (primary) hypertension; K59.09 Other constipation; Z79.82 Long term (current) use of aspirin; Z79.02 Long term (current) use of antithrombotics/antiplatelets; Z79.84 Long term (current) use of oral hypoglycemic drugs; Z87.440 Personal history of urinary (tract) infections
CPT/HCPCS: 99283; 51702; 81003; 81015; 87077; 87086

== ENCOUNTER 2025-04-21 14:46 | Inpatient (IN) | payer BC, SELFPAY ==
[2025-04-21] VITALS (9 sets, daily range): BP systolic 109–138; BP diastolic 60–78; BMI 22.3
--- NOTE | 2025-04-21 10:20 | ED.GENMED ---
History of Present Illness
<Mg Fishman PA-C - Last Filed: 04/21/25 13:42>
General
Chief Complaint: Urinary Symptoms
Source: patient
Time Seen by Provider: 04/21/25 10:06
History of Present Illness
History of Present Illness:
64-year-old female non-insulin diabetic with history of coronary artery disease presents with urinary symptoms of dysuria bladder spasm flank pain nausea and chills. She had a bladder prolapse surgery about 2 to 3 weeks ago and has been self
cathing up until about 2 days ago. She was here recently diagnosed with a UTI and she started on Bactrim found to be resistant and started on cefdinir. Urine culture grew out E. coli ESBL. She spoke with her surgeon and they recommended she come
here for further evaluation.
Phy Exam
<Mg Fishman PA-C - Last Filed: 04/21/25 13:42>
Physical Exam
Physical Exam:
General: Well-appearing female in no acute respiratory distress
HEENT normal cephalic atraumatic
Heart: Regular rate and rhythm
Lungs: Clear no wheeze
Abdomen soft tender to the suprapubic area. No guarding mild right sided costovertebral angle tenderness
Extremities: No cyanosis
Course
<Mg Fishman PA-C - Last Filed: 04/21/25 13:42>
Orders/Labs/Results
Orders:
Orders
04/21/25 10:19
CT Abd/pelvis W Iv Cont Urgent
Comment:
Reason For Exam: lower abdominal and flank pain
Bladder Scan- Treatment ONCE
0.9% Sodium Chloride 1000 ml [Nss] 1,000 ml IV BOLUS
04/21/25 10:57
Complete Blood Count/With Diff Urgent
Comprehensive Metabolic Panel Urgent
Lactic Acid Urgent
Urinalysis Reflex To Culture Urgent
Date Specimen was Collected: 04/21/25
Time Specimen was Collected: 10:34
Urine Microscopic Reflex Cult Urgent
Blood Culture Q30M
DARRICK Source: Blood/Venous
Specimen Description:
Blood Culture Q30M
DARRICK Source: Blood/Venous
Specimen Description:
Urine Culture Urgent
DARRICK Source: U
Specimen Description:
Date Specimen was Collected: 04/21/25
Time Specimen was Collected: 10:34
04/21/25 13:38
CefTRIAXone [Rocephin] 1,000 mg IV NOW STA
04/21/25 14:23
Ketorolac [Toradol] 30 mg IV NOW STA
Lactobac/Bifidobac [Visbiome] 2 cap PO NOW STA
Phenazopyridine HCl [Pyridium] 200 mg PO NOW STA
04/21/25 14:24
Admit/Transfer Patient As Directed
Co-Sign Provider:
Level of Care: Inpatient admission
Assign to:: Medical/Surgical
Physician / Group: kam,sarahi
Diagnosis: symptomatic uti failure out pt abx ecoli esbl
Reason for Hospitalization: symptomatic uti failure out pt abx ecoli esbl
Expected length of stay greater than two midnights?: Yes
ELOS- Estimated Length of Stay in days: 3
I certify the patient meets the requirements for IP care: Yes
Code Status As Directed
Resuscitation Status: Full Code
04/21/25 14:28
PRN Pain Medication Management As Directed
May give lesser potent ordered pain med per pt: Yes
preference::
Protocol:: Medication orders for pain may be administered in a
manner that supports deferring to patient preference
when the pt is:
- Requesting an ordered lesser potent pain medication.
Least to most potent pain medications are defined
as: acetaminophen < NSAID < tramadol < opioids
(morphine, oxycodone, hydromorphone).
- Requesting a lesser dose of the same medication IF
ORDERED.
- Requesting a less intrusive route of administration
if both routes are prescribed by the provider (PO <
IV).
Abnormal Lab Results
04/21/25
10:57
MCHC 32.5 L g/dL
(33.0-37.0)
BUN 18 H mg/dl
(7-17)
Glucose 102 H mg/dl
(70-99)
ALT 80 H U/L
(0-35)
Ur Occult Blood Reflex 4+ A
(Negative)
Urine Nitrite (Reflex) Positive A
(Negative)
Leukocyte Esterase Rfl 3+ A
(Negative)
Urine RBC 3-6 A /HPF
(0-2)
Urine WBC (Reflex) 80-90 A /HPF
(0-5)
Urine Bacteria (Reflex) Many A
(Negative)
Urine Glucose 4+ A
(Negative)
Urine Albumin (Reflex) 3+ A
(Neg - Trace)
04/21/25 10:57
04/21/25 10:57
Vital Signs
Initial and Last Documented VS:
Initial Vital Signs
Temp Pulse Resp BP Pulse Ox
98.6 F 79 18 124/78 98
04/21/25 08:52 04/21/25 08:52 04/21/25 08:52 04/21/25 08:52 04/21/25 08:52
Last Documented Vital Signs
Temp Pulse Resp BP Pulse Ox
98.6 F 82 26 127/68 96
04/21/25 08:52 04/21/25 16:30 04/21/25 16:30 04/21/25 16:00 04/21/25 15:17
<Ace Venegas, DO - Last Filed: 04/21/25 17:04>
Orders/Labs/Results
Orders:
Orders
04/21/25 10:19
CT Abd/pelvis W Iv Cont Urgent
Comment:
Reason For Exam: lower abdominal and flank pain
Bladder Scan- Treatment ONCE
0.9% Sodium Chloride 1000 ml [Nss] 1,000 ml IV BOLUS
04/21/25 10:57
Complete Blood Count/With Diff Urgent
Comprehensive Metabolic Panel Urgent
Lactic Acid Urgent
Urinalysis Reflex To Culture Urgent
Date Specimen was Collected: 04/21/25
Time Specimen was Collected: 10:34
Urine Microscopic Reflex Cult Urgent
Blood Culture Q30M
DARRICK Source: Blood/Venous
Specimen Description:
Blood Culture Q30M
DARRICK Source: Blood/Venous
Specimen Description:
Urine Culture Urgent
DARRICK Source: U
Specimen Description:
Date Specimen was Collected: 04/21/25
Time Specimen was Collected: 10:34
04/21/25 13:38
CefTRIAXone [Rocephin] 1,000 mg IV NOW STA
04/21/25 14:23
Ketorolac [Toradol] 30 mg IV NOW STA
Lactobac/Bifidobac [Visbiome] 2 cap PO NOW STA
Phenazopyridine HCl [Pyridium] 200 mg PO NOW STA
04/21/25 14:24
Admit/Transfer Patient As Directed
Co-Sign Provider:
Level of Care: Inpatient admission
Assign to:: Medical/Surgical
Physician / Group: sarahi humphrey
Diagnosis: symptomatic uti failure out pt abx ecoli esbl
Reason for Hospitalization: symptomatic uti failure out pt abx ecoli esbl
Expected length of stay greater than two midnights?: Yes
ELOS- Estimated Length of Stay in days: 3
I certify the patient meets the requirements for IP care: Yes
Code Status As Directed
Resuscitation Status: Full Code
04/21/25 14:28
PRN Pain Medication Management As Directed
May give lesser potent ordered pain med per pt: Yes
preference::
Protocol:: Medication orders for pain may be administered in a
manner that supports deferring to patient preference
when the pt is:
- Requesting an ordered lesser potent pain medication.
Least to most potent pain medications are defined
as: acetaminophen < NSAID < tramadol < opioids
(morphine, oxycodone, hydromorphone).
- Requesting a lesser dose of the same medication IF
ORDERED.
- Requesting a less intrusive route of administration
if both routes are prescribed by the provider (PO <
IV).
Abnormal Lab Results
04/21/25
10:57
MCHC 32.5 L g/dL
(33.0-37.0)
BUN 18 H mg/dl
(7-17)
Glucose 102 H mg/dl
(70-99)
ALT 80 H U/L
(0-35)
Ur Occult Blood Reflex 4+ A
(Negative)
Urine Nitrite (Reflex) Positive A
(Negative)
Leukocyte Esterase Rfl 3+ A
(Negative)
Urine RBC 3-6 A /HPF
(0-2)
Urine WBC (Reflex) 80-90 A /HPF
(0-5)
Urine Bacteria (Reflex) Many A
(Negative)
Urine Glucose 4+ A
(Negative)
Urine Albumin (Reflex) 3+ A
(Neg - Trace)
04/21/25 10:57
04/21/25 10:57
Vital Signs
Initial and Last Documented VS:
Initial Vital Signs
Temp Pulse Resp BP Pulse Ox
98.6 F 79 18 124/78 98
04/21/25 08:52 04/21/25 08:52 04/21/25 08:52 04/21/25 08:52 04/21/25 08:52
Last Documented Vital Signs
Temp Pulse Resp BP Pulse Ox
98.6 F 82 26 127/68 96
04/21/25 08:52 04/21/25 16:30 04/21/25 16:30 04/21/25 16:00 04/21/25 15:17
<Mg Fishman PA-C - Last Filed: 04/21/25 13:42>
MDM/Problems Addressed
Differential Diagnosis Includes:
Urinary symptoms lower abdominal pain and flank pain. Consider UTI or spinal nephritis versus kidney stone versus urinary retention
Will check labs and urine do bladder scan CT scan fluids ordered. Urine culture last time demonstrated ESBL sensitive to third-generation cephalosporin
<Mg Fishman PA-C - Last Filed: 04/21/25 13:42>
*Pulse Oximetry
SaO2: 98
Oxygen Mode of Delivery: Room air
Patient hypoxic: no
*Critical Care Note
Total Time (30-74mins, 75-104mins- exclusive of procedures): Not Applicable
<Mg Fishman PA-C - Last Filed: 04/21/25 13:42>
Update Note
Update Note:
UA with signs of infection. Labs reviewed. CT reviewed. Patient failing outpatient treatment for urinary tract infection. Will admit to hospital. Rocephin ordered
ED Attending Note
<Mg Fishman PA-C - Last Filed: 04/21/25 13:42>
-
Portions of this chart may have been created with voice recognition software.� Occasional wrong word or��sound alike� substitutions may have occurred due to the inherent limitations of voice recognition software.
<Ace Venegas DO - Last Filed: 04/21/25 17:04>
ED Attending Note
Patient seen and examined by attending physician: Yes
I performed the substantive portion of visit, reviewed & personally made and approve the management plan that is documented in note by myself or WAGNER.: Yes
ED Attending Note:
Seen with PA examined independently agree with assessment and plan recurrent UTI symptoms resistant organism, will be admitted
Discharge Plan
Departure
Patient Disposition: Admit
Date of Disposition: 04/21/25
Time of Disposition: 13:42
Presentation/result/management discussed w/ accepting MD/DO: Hospitalist
Discharge Problem:
Acute UTI
Interventions
Interventions:
*Risk Screen - Suicide Last Done: 04/21/25 08:52
*General Assessment Last Done: 04/21/25 08:52
*Neglect/Abuse Screening Last Done: 04/21/25 11:31
*ED- Fall Risk Assessment Last Done: 04/21/25 11:31
*ED COVID-19 Vaccine History Last Done: 04/21/25 11:31
*ED Influenza Vaccine History Last Done: 04/21/25 11:31
ED-Female Genitourinary Assessment Last Done: 04/21/25 11:31
[2025-04-21] MEDS: NSS 1000 IV (10:48)
[2025-04-21 11:23] LABS: Hematocrit 40.3 % (37.0-47.0); Hemoglobin 13.1 g/dL (12.0-16.0); Mean Corp Hgb Conc. 32.5 g/dL (33.0-37.0); Mean Corpuscular Volume 94.6 fL (81.0-99.0); Nucleated Red Blood Cells % 0 %; Platelet Count 307 10^3/uL (130-400); Red Cell Dist. Width 13.5 % (11.5-14.5)
[2025-04-21 11:25] LABS: Urine Character Slightly Cloudy (Clear)
[2025-04-21 11:32] LABS: ALT (SGPT) 80 U/L (0-35); AST (SGOT) 32 U/L (14-36); Albumin 4.5 g/dl (3.5-5.0); Alkaline Phosphatase 81 U/L (38-126); Blood Urea Nitrogen 18 mg/dl (7-17); Calcium 10.1 mg/dl (8.4-10.2); Carbon Dioxide 28 mmol/L (22-30); Chloride 107 mmol/L (98-107); Estimated Creatinine Clearance 68 ml/min; Glucose 102 mg/dl (70-99); Potassium 4.6 mmol/L (3.5-5.1); Sodium 141 mmol/L (135-145); Total Protein 7.4 g/dl (6.3-8.2); eGFR > 60.00
[2025-04-21 11:33] LABS: Urine Squamous Cell 0-2 /LPF (Few); Urine White Cell 80-90 /HPF (0-5)
--- NOTE | 2025-04-21 13:44 | W.PN.UPDATE ---
Addendum entered and electronically signed by Erik Gallegos MD 04/22/25 07:44:
CT AP w IV contrast
-Mild left hydronephrosis secondary to a 3 mm proximal right ureteral stone. Contrast passes beyond this region during the excretory phase suggesting incomplete obstruction.Stable.
- Mild diffuse bladder wall thickening. This can be seen with cystitis or bladder outlet obstruction. Stable
IMP:
Partial left obstructive uropathy
- Uro consulted
Original Note:
Update Note
Progress Note Update
This note serves as an addendum to the H&P by cutter operator WAGNER�
[place]
HPI�
64F HX NIDDM, CAD seen at ER
- pw persistent dysuria, and chills.
- Recent surgery for bladder prolapse by Dr. Francis.
- she was here over a week ago for UTI and placed initially on Bactrim.
- UCX POS for ESBL E Coli . then switched to Omnicef and completed the course but symptoms persist.
- UA still with infection.
ROS
Suprapubic discomfort
chills daily, Fever 100.6 yesterday
Reviewed VS:
Temp Pulse Resp BP Pulse Ox
98.6 F 61 22 109/60 97
04/21/25 08:52 04/21/25 12:45 04/21/25 12:45 04/21/25 12:00 04/21/25 12:45
PE
Gen: NAD
HEENT:anicteric
Neck: supple
Abdomen:�sof t NT
MS:no edema
Relevant Data�
04/07/25 04/21/25
06:59 10:57
WBC 5.9
Hgb 11.3 L 13.1
Creatinine 0.6 0.7
eGFR > 60.00 > 60.00
ALT [address] AP
Micro Data
UCX 04/13/25 :CC: Greater than 100,000 CFU/ML Escherichia coli - ESBL*
Resistance due to extended spectrum beta lactamase.
Deacreased activity may occur with penicillins,
penicillin/inhibitor combinations, cephalosporins, and
monobactams.
Organism 1 Escherichia coli
1. Escherichia coli
M.I.C. RX
--------- ---
Amoxicillin/Potas. Clavulanate >16/8 R
Ampicillin >16 R
Ampicillin/Sulbactam 16/8 I
Aztreonam <=4 S
Cefazolin >16 R
Cefepime <=2 S
Ceftazidime >16 R
Ceftriaxone <=1 S
Ertapenem <=0.5 S
Ciprofloxacin >2 R
Gentamicin <=2 S
Meropenem <=1 S
Nitrofurantoin-Urine Only <=32 S
Piperacillin/Tazobactam <=8 S
Tetracycline >8 R
Tobramycin <=2 S
Trimethoprim/Sulfamethoxazole >2/38 R
Last hospitalist admission: 04/05/25 - 04/07/25
DC DX:
Severe constipation. Acute urinary retention.
Gastroparesis.
HX recent anterior and posterior colporrhaphy and perineoplasty
ASSESSMENT & PLAN
Pending Rx reconciliation
Failure of OP Rx for ESBL E Coli complicated UTI
H recurrent UTIs: On Trimethoprim for antibiotic suppression, long-term
HX urinary retention: 04/05- 04/09 Indwelling cath. 04/09- 04/11 replaced indwelling cath the start sef cath till 04/17
HX Cystocele and rectocele: Status post anterior and posterior colporrhaphy and perineoplasty
- IV Cefepime
- Pyridium PRN
- c/w WET POUR MIXER probiotics
- ID consult for ABx appropriation
CAD: HX multiple cardiac stents in the past
- CP free
- on DAPT + Atorvastatin + Carvedilol and Losartan
Cardiac valvulopathy
Bn HTN
- Continue current antihypertensive regimen
Hyperlipidemia:
- Continue Atorvastatin
Hypothyroidism:
- Continue levothyroxine 112 mcg p.o. daily
DVT Px: LMWH
Full code
IP MS
--- NOTE | 2025-04-21 13:52 | HPS.HSE ---
Family Physician
-
Family Physician: Bradley Mejias
Chief Complaint
-
Dysuria, frequency, bladder spasm
History of Present Illness
Patient is status post recent anterior and posterior colporrhaphy and perineoplasty for bladder prolapse. She had recent admission on 04/05 - 04/07/2025 secondary to severe constipation and urinary retention postsurgery requiring Ferreira catheter
placement and enema. She reports she had Ferreira catheter placed 04/05 then taken on 930 but was unable to void she required reinsertion of Ferreira catheter until 04/11 then converted to self cathing until 04/17, but stopped due to feeling bladder spasms,
dysuria. She had recent UTI was started on Bactrim found to be resistant which was switched to cefdinir for which she finished yesterday 04/20/2025. She developed fever of 100.6 yesterday through Tylenol and Motrin she has been taking
[id number] since surgery. Urine culture grew out E. coli ESBL she was advised by her surgeon to come to ER for further evaluation of her symptoms of dysuria, bladder spasm, flank pain, nausea and chills. She denies headache, sore throat,
chest pain, palpitations, cough, shortness of breath, vomiting, diarrhea. She has Past medical history hypertension hyperlipidemia hypothyroidism, CAD, cardiac valvulopathy, constipation, urinary retention, gastroparesis
Medical History
Past Medical History
Past Medical History: Reports Other
Additional Past Medical History:
hypertension
hyperlipidemia
type 2 diabetes
Hashimotos thyroiditis
CAD/TX 2014
anxiety
Recurrent UTIs
Bladder prolapse
Migraines
OA
Past Surgical History: Reports Other
Additional Past Surgical History:
cardiac cath with stents x5
cystocele/rectocele surgery
hysterectomy
Tubal ligation
ureteroscopyx5
anterior and posterior colporrhaphy and perineoplasty for bladder prolapse
Tonsillectomy
Social History
Tobacco: Non-smoker
Alcohol: None
Drug: None
Personal:
Living: With Family
Employment: Employed
Family History
Family History: Not pertinent
Allergies / Home Medications
Allergies reflects when Allergies were last updated in [employer].
Home Medications with original date entered in [employer]
Allergy/Medication List:
Allergies
Allergy/AdvReac Type Severity Reaction Status Date / Time
pollen extracts Allergy Congestion- Verified 04/21/25 08:54
seasonal
Home Medications
aspirin 81 mg tablet,delayed release 81 mg PO DAILY ##0 07/03/14
furosemide 40 mg tablet 40 mg PO MOWEFR Fluid Retention/Swelling 03/03/15
alprazolam 0.25 mg tablet (Xanax) 0.25 mg PO HSPRN PRN anxiety, insomnia 04/21/22
atorvastatin 40 mg tablet 40 mg PO QPM High Cholesterol 04/21/22
carvedilol 12.5 mg tablet (Coreg) 12.5 mg PO BID Blood Pressure 04/21/22
empagliflozin 25 mg tablet (Jardiance) 25 mg PO DAILY Kidney Disease 04/21/22
metformin 1,000 mg tablet 1,000 mg PO BID Diabetes 04/21/22
Lactobac no.2-Bifidobac no.1-S. thermo 112.5 billion cell capsule (Visbiome) 1 cap PO DAILY Supplement ##0 03/25/25
levothyroxine 112 mcg tablet (Synthroid) 112 mcg PO DAILY Thyroid 03/25/25
trimethoprim 100 mg tablet 100 mg PO DAILY uti 03/25/25
Estradiol-Testosterone Cream 1 applic vaginal MOWEFR 04/21/25
clopidogrel 75 mg tablet 75 mg PO DAILY Blood Clot Prevention/Tx 04/21/25
losartan 100 mg tablet 50 mg PO DAILY 04/21/25
polyethylene glycol 3350 17 gram oral powder packet 17 g PO DAILY Constipation 04/21/25
semaglutide 1 mg/dose (4 mg/3 mL) subcutaneous pen injector (Ozempic) 1 mg SC SA 04/21/25
therapeutic multivitamin 1 tab PO DAILY 04/21/25
Review of Systems
-
History Source: Patient and Family ( at bedside)
A 12 point ROS was completed and negative except as noted: Yes
Constitutional: Reports Fever and Chills
EENT: Denies Sore Throat or Runny Nose
Respiratory: Denies Cough or Trouble Breathing
Cardiac: Denies Chest Pain, Diaphoresis, Palpitations or Syncope
Abdomen/GI: Reports Abdominal Pain and Nausea; Denies Vomiting, Diarrhea, Constipated or Bloody Stools
: Reports Dysuria, Frequency and Urgency; Denies Flank Pain, Incontinence, Difficulty Voiding or Dark Urine
Musculoskeletal: Denies Joint Pain or Edema
Skin: Denies Itching or Rash
Neurological: Denies Dizzy, Headache or Weakness
Endocrine: Reports No Symptoms
Hematologic/Lymphatic: Reports No Symptoms
Psych: Reports Calm
Physical Exam
Vital Signs
Vital Signs
Temp Pulse Resp BP Pulse Ox
98.6 F 61 22 109/60 97
04/21/25 08:52 04/21/25 12:45 04/21/25 12:45 04/21/25 12:00 04/21/25 12:45
Physical Exam
General: Comfortable, Conversant and Chills
HEENT: NormoCephalic, Anicteric, Moist mucous membranes, PERRLA, [place] Conjunctivae and No Ptosis
Respiratory: Clear; No Wheezes, Rales or Rhonchi
Cardiac: Murmur (2/6 systolic murmur); No Rub, Gallop or Peripheral Edema
Breast: Deferred by me
GI: Soft, Non Distended, Normal Bowel Sounds and Tender (Suprapubic)
Rectal: Deferred by Provider
Genito-urinary: Deferred by me
Musculoskeletal: No Cyanosis and No Edema
Skin: Warm and Dry; No Rash
Neuro: AO x 3, No Motor Deficits, Nonfocal/grossly intact, Cranial Nerves Intact and No Sensory Deficits; No Slurred Speech, Facial Droop, Tremors or Sedated
Psych: Calm
Laboratory Results
-
04/21/25 10:57
04/21/25 10:57
Laboratory Results
Lactic Acid 1.1 mmol/L (0.7-2.0) 04/21/25 10:57
Total Bilirubin 0.8 mg/dl (0.2-1.3) 04/21/25 10:57
AST 32 U/L (14-36) 04/21/25 10:57
ALT 80 U/L (0-35) H 04/21/25 10:57
Alkaline Phosphatase 81 U/L (38-126) 04/21/25 10:57
Impression/Plan
-
Impression/plan:
Admit to MedSurg
#Symptomatic UTI with E. coli/ESBL failure outpatient ABX/Mild LEFT hydronephrosis secondary to a 3 mm proximal LEFT ureteral stone.
#Recent UTI treated with Bactrim> Omnicef
#History of prior recurrent UTIs was on suppressive trimethoprim 100 mg daily
- IV Cefepime
- Tylenol
-Probiotic
-Pyridium
-IV Toradol
-Strain urine
- Consult ID
-Urology consulted
- Follow CBC, CMP
CT abdomen pelvis: Mild left hydronephrosis secondary to a 3 mm proximal LEFT ureteral stone. Contrast passes beyond this region during the excretory phase suggesting incomplete obstruction.Stable.
Mild diffuse bladder wall thickening. This can be seen with cystitis or bladder outlet obstruction. Stable
Perirectal postprocedural changes versus abscesses.
Mild diverticulosis. Stable
Right-sided pulmonary nodules. Stable. This is all related conveyed to the Pulmonary Nodule Advisory Board
#Status post recent anterior and posterior colporrhaphy and perineoplasty for bladder prolapse
#Incidental Right-sided pulmonary nodules. Stable. On CT
-Recommend follow-up with pulm
#HTN
BP soft 109/60
Will hold losartan 50 mg daily
-Continue Coreg with hold parameters
#DM 2
Accu-Cheks
-Continue metformin 1000 mg twice daily, Jardiance
#HLD
- Continue statin
#Known cardiac murmur per patient
-No records of echo
#Gastroparesis
#Hypothyroidism/Sigifredo's thyroiditis
-Continue levothyroxine
#CAD/TX/cardiac stents times 11/27/2014
-Continue Plavix, aspirin, statin, Coreg with hold parameters
#Constipation
-Continue MiraLAX
-Ozempic on hold
#Anxiety
#Insomnia
Continue Xanax as needed
Other PMH:
OA
Renal calculi
IBS
GI bleed
Colonic polyps
Migraine headaches
DVT prophylaxis
Subcu heparin
Full code
[2025-04-21] MEDS: ROCEPHIN 1000 MG IV (14:08)
[2025-04-21] MEDS: TORADOL 30 MG IV (14:37)
[2025-04-21] MEDS: VISBIOME 2 CAP PO (14:37)
--- NOTE | 2025-04-21 14:45 | CM ---
Patient seen at bedside with present in ED. Patient states that she lives with her in a 2 story home with a first floor set up. Patient has no DME at home. Patient PCP is Dr. Mejias and she uses the [facility] in [place]. Patient asked
about home IV antibiotics and is aware of options; [place] [facility] and [facility] pending physician recommendations. Patient has never needed home VN in the past. CM will continue to follow for discharge planning needs.
Plan; home with VN vs home with IV antibiotics; watch for medical treatment plan
--- NOTE | 2025-04-21 16:23 | CON.ID ---
Consultation
-
Date/Time Consultation Requested: April 21, 2025 1537
Date/Time Consultation Performed: April 21, 2025 1625
Requesting Provider: EULALIO Reza
Performing Provider: Dr. Tarah Horne
Reason for Consultation: ESBL UTI
Chief Complaint / Past History
Chief Complaint
Bladder pain and dysuria
History of Present Illness
64-year-old female with history of diabetes mellitus, gastroparesis, CAD, nephrolithiasis, who presented to the ED today due to dysuria, bladder pain, fevers and chills. She recently underwent bladder and rectal prolapse repair complicated by
severe constipation and urinary retention from anesthesia and pain medication. Pacheco was placed. She failed voiding trial on April 09 and had to come back to the ER that night for pacheco reinsertion. She was told she had a UTI then and
prescribed Bactrim to change the Bactrim to cefdinir. She completed 20 cefdinir yesterday. In the meantime Pacheco was removed April 17 and transition to self-catheterization. During this time patient with progressive worsening bladder spasms,
right flank pain, malaise. She had difficulty with straight cath due to severe bladder spasms. She had to take Tylenol [id number]. Over the past 2 days she was able to void spontaneously. She eased off on the Tylenol and noted temperature
of 102. Positive chills. Positive nausea and poor appetite. She called her urogyn physician who recommended hospital admission. She reports few years ago she was at another hospital and was placed on meropenem for complicated UTI at time of
obstructive uropathy requiring stent.
Past History
Additional Past Medical History:
Diabetes mellitus
Gastroparesis
CAD s/p stents x 5
Sigifredo's thyroiditis
Anxiety
Pulmonary nodule
Migraine
Nephrolithiasis hx stent
hx ESBL-UTI
Cystocele and rectocele status post anterior and posterior colporrhaphy and perineoplasty
Hysterectomy
Allergy History:
pollen extracts Allergy (Verified 04/21/25 08:54)
Congestion-seasonal
Medications Reviewed: Yes
Current Antibiotics:
Ceftriaxone
Social History
Tobacco: Non-Smoker
Alcohol: Occasional
Drug: None
Personal:
Living: With Family
Family History
Family History: Not Pertinent
Review of Systems
Review of Systems
General: Fever, Chills and Change in Appetite
HEENT: Negative Sinus Problems or Headache
Cardiovascular: Negative Chest Pain
Respiratory: Negative Dyspnea or Cough
Gasteroenterology: Nausea; Negative Diarrhea
Genital / Urological: Dysuria, Hematuria and Flank Pain
Endocrine: Weakness
Skin / Hair / Nails: Negative Rash
Neurological: Negative Dizziness
All systems: All other systems were reviewed and were negative
Vital Signs
Temp Pulse Resp BP Pulse Ox
98.6 F 76 19 129/73 96
04/21/25 08:52 04/21/25 15:17 04/21/25 15:17 04/21/25 15:17 04/21/25 15:17
Physical Exam
Physical Exam
Constitutional: Non-toxic
Eyes: No Conjunctival Hemorrhage and Sclera Anicteric
Cardiovascular: Regular Rate and S1/S2
Pulmonary: Clear
Gastrointestinal: Soft, Non Tender, Non Distended and Normal Bowel Sounds
Genito-Urinary: Suprapubic Tenderness; Negative CVA Tenderness
Extremities: Negative Edema
Neurological: AO x 3
Lab / Diagnostic Study Results
04/21/25 10:57
04/21/25 10:57
Abs Immat Gran (auto) 0.0 10^3/uL (0-0.05) 04/21/25 10:57
Absolute Neuts (auto) 4.0 10^3/uL (1.4-6.5) 04/21/25 10:57
Absolute Lymphs (auto) 1.3 10^3/uL (1.2-3.4) 04/21/25 10:57
Absolute Monos (auto) 0.5 10^3/uL (0.1-0.6) 04/21/25 10:57
Absolute Basos (auto) 0.0 10^3/uL (0-0.2) 04/21/25 10:57
Immature Gran % 0.5 % (0-0.5) 04/21/25 10:57
Neutrophils % 67.0 % (42.2-75.2) 04/21/25 10:57
Lymphocytes % 22.2 % (20.5-51.1) 04/21/25 10:57
Monocytes % 7.9 % (1.7-9.3) 04/21/25 10:57
Eosinophils % 1.9 % (0-6) 04/21/25 10:57
Basophils % 0.5 % (0-2) 04/21/25 10:57
Lactic Acid 1.1 mmol/L (0.7-2.0) 04/21/25 10:57
Ur Squamous Epith Cells 0-2 /LPF (Few) 04/21/25 10:57
Microbiology Results
Micro:
04/21/25 10:57 Urine Culture - Pending
Urine
04/21/25 10:57 Blood Culture - Pending
Blood/Venous
04/21/25 10:57 Blood Culture - Pending
Blood/Venous
04/21/25 CT a/p: There is mild left hydronephrosis secondary to a left proximal ureteral stone measuring 3 mm. This is seen best on image #44 series 201.
Assessment / Plan
# Complicated UTI with MDR ESBL-Ecoli
# Partial left obstructive uropathy
# Recent urinary retention requiring pacheco, then self-cath
- Start ertapenem 1g IV q24h
- Follow bcx an d Ucx
-Trend temps/wbc
Conditions present on admission:
Diabetes mellitus
Gastroparesis
CAD s/p stents x 5
Sigifredo's thyroiditis
Anxiety
Pulmonary nodule
Migraine
Nephrolithiasis hx stent
hx ESBL-UTI
Cystocele and rectocele status post anterior and posterior colporrhaphy and perineoplasty 04/02/25
Hysterectomy
[2025-04-21] MEDS: INVANZ 60 MG IV (17:09)
[2025-04-21 17:36] LABS: Glucose - Point of Care 111 mg/dl (70-99)
[2025-04-21] MEDS: NOVOLOG FLEXPEN-LOW RESISTANCE SC (18:33)
[2025-04-21] MEDS: GLUCOPHAGE 1000 MG PO (20:14)
[2025-04-21] MEDS: COREG 12.5 MG PO (20:15)
[2025-04-21] MEDS: HEPARIN 5000 UNITS SC (20:15)
[2025-04-21] MEDS: LIPITOR 40 MG PO (20:15)
--- NOTE | 2025-04-21 22:42 | W.PN.URO.CBU ---
Today's Communication / Plan
-
NO OP ROOM PLANNED AT THIS TIME
Assessment / Plan
-
incidental finding left 3mm prox non obstructing stone will trweeta known ESBL E COLI UTI AND TRIAKL OF PASSAGE OF STONE OBSERVE FOR SEPSIS COLIC
Diagnosis
-
Date of Service: April 21, 2025
-
Patient Diagnosis:esbl uti with incidental asx finding left prox non obstructing 3 mm prox ureteral stone
Post Op Day:
Subjective
-
no left sxs voiding well dysuria
Objective
-
Vital Signs
Temp Pulse Resp BP Pulse Ox
98.7 F 77 16 138/78 95
04/21/25 20:51 04/21/25 20:51 04/21/25 20:51 04/21/25 20:51 04/21/25 20:51
Laboratory Results
04/21/25 10:57
04/21/25 10:57
Review of Systems
-
: Dysuria and Frequency
Physical Exam
-
General - well developed, well nourished, no acute distress non toxic
Chest - clear bilaterally
Abdomen - soft, non-tender, positive bowel sounds, no CVAT, no incisional pain or distention
Genitalia - normal
Rectal - normal
Skin - warm & dry with no rash
Neuro - AOx3, no motor deficits
Extremities - no clubbing, no cyanosis, no edema
Incision - clean, dry
Dressing - clean, dry, intact
Care Review
Data Reviewed
Discussed with: Hospitalist
CT Scan: Image Pers Reviewed
[2025-04-21 22:45] LABS: Glucose - Point of Care 88 mg/dl (70-99)
[2025-04-21] MEDS: TORADOL 15 MG IV (22:50)
[2025-04-22] MEDS: SYNTHROID 112 MCG PO (05:07)
[2025-04-22] MEDS: TYLENOL 650 MG PO (05:14)
[2025-04-22 07:25] VITALS: BP 120/70
[2025-04-22 07:44] LABS: Hematocrit 36.3 % (37.0-47.0); Hemoglobin 11.8 g/dL (12.0-16.0); Mean Corp Hgb Conc. 32.5 g/dL (33.0-37.0); Mean Corpuscular Volume 98.4 fL (81.0-99.0); Nucleated Red Blood Cells % 0 %; Platelet Count 263 10^3/uL (130-400); Red Cell Dist. Width 13.3 % (11.5-14.5)
[2025-04-22 07:45] LABS: Glucose - Point of Care 96 mg/dl (70-99)
[2025-04-22 08:01] LABS: ALT (SGPT) 56 U/L (0-35); AST (SGOT) 26 U/L (14-36); Albumin 3.5 g/dl (3.5-5.0); Alkaline Phosphatase 58 U/L (38-126); Blood Urea Nitrogen 18 mg/dl (7-17); Calcium 9.9 mg/dl (8.4-10.2); Carbon Dioxide 27 mmol/L (22-30); Chloride 107 mmol/L (98-107); Estimated Creatinine Clearance 68 ml/min; Glucose 100 mg/dl (70-99); Potassium 5.0 mmol/L (3.5-5.1); Sodium 138 mmol/L (135-145); Total Protein 5.9 g/dl (6.3-8.2); eGFR > 60.00
[2025-04-22] MEDS: NOVOLOG FLEXPEN-LOW RESISTANCE SC ×2 (08:41→13:05)
[2025-04-22] MEDS: GLUCOPHAGE PO (08:44)
[2025-04-22] MEDS: THERAGRAN 1 TABLET PO (08:44)
[2025-04-22] MEDS: COREG 12.5 MG PO ×2 (08:44→19:23)
[2025-04-22] MEDS: FARXIGA 10 MG PO (08:44)
[2025-04-22] MEDS: MIRALAX 17 GRAMS PO (08:45)
[2025-04-22] MEDS: HEPARIN SC (08:45)
[2025-04-22 09:36] LABS: Glycohemoglobin (HgbA1c) 5.8 % (4.0-5.6)
--- NOTE | 2025-04-22 10:53 | W.PN.HOSP.TC ---
Addendum entered and electronically signed by Michelle Lorenz MD 04/28/25 17:59:
for CDI: CAUTI is still a likely diagnosis
Original Note:
Today's Communication/Plan
-
Possible discharge home in a.m. once outpatient antibiotics set up
Assessment / Plan
Assessment / Plan
64F w/ DM, CAD, kidney stones, bladder prolapse s/p surgery, p/w dysuria, found to have UTI that failed outpatient antibiotics.
Complicated UTI due to ESBL E Coli
Could be secondary to recent Ferreira, and self caths
Hx recurrent UTIs: On Trimethoprim for antibiotic suppression, long-term
HX urinary retention: 04/05- 04/09 Indwelling cath. 04/09- 04/11 replaced indwelling cath the start sef cath till 04/17
HX Cystocele and rectocele: Status post anterior and posterior colporrhaphy and perineoplasty
- Per ID, ertapenem 1g IV q24h through 05/04/25. Midline per ID for outpatient home ABX. Follow-up final blood (NGTD) and urine culture (GNB)
- Pyridium PRN
- c/w [employer] REVIEWER probiotics
CAD: HX multiple cardiac stents in the past
- on DAPT + Atorvastatin + Carvedilol and Losartan
Cardiac valvulopathy
HTN
- Continue current antihypertensive regimen. BP controlled
Hyperlipidemia:
- Continue Atorvastatin
Hypothyroidism:
- Continue levothyroxine 112 mcg p.o. daily
DM
Hold home meds while inpatient
A1c 5.8%
DVT Px: Lovenox
Anticipated Discharge: Within 24 hours
Subjective/Interval History
-
Date of Service: April 22, 2025
Feeling well, intermittent bladder spasms and dysuria. Tired.
Objective Data
-
Labs:
Laboratory Results
04/22/25
07:03
WBC 5.1
Hgb 11.8 L
Hct 36.3 L
Plt Count 263
Sodium 138
Potassium 5.0
Chloride 107
Carbon Dioxide 27
BUN 18 H
Creatinine 0.7
Glucose 100 H
Calcium 9.9
Total Bilirubin 0.5
AST 26
ALT 56 H
Alkaline Phosphatase 58
Vital Signs:
Vital Signs
Temp Pulse Resp BP Pulse Ox
98.2 F 71 16 120/70 94
04/22/25 07:25 04/22/25 08:44 04/22/25 07:25 04/22/25 08:44 04/22/25 10:27
I&O
04/21/25 04/22/25 04/23/25
06:59 06:59 06:59
Intake Total 480 / 480
Output Total 900 / 900
Balance -420 / -420
Review of Systems
-
All other systems: Reviewed and negative
Physical Exam
-
General: No Apparent Distress
HEENT: Moist Mucous Membranes, Anicteric and PERRLA
Respiratory: Clear to Auscultation; Negative Wheezes, Rales or Rhonchi
Cardiac: Regular Rhythm, S1/S2 and Murmur; Negative Rub or Gallop
GI: Soft, Nontender, Nondistended and Normal Bowel Sounds
Musculoskeletal: No Edema
Skin: Warm and Dry; Negative Rash, Ulcers or Lesions
Neuro: Awake and AO x 3
Hematologic / Lymphatic: No Lymphadenopathy
Psych: Calm
Data Reviewed
-
CT Scan: Report Reviewed by me and Discussed with Patient
Labs: Labs Reviewed by me and Discussed with Patient
--- NOTE | 2025-04-22 11:17 | W.PN.ID1 ---
Date of Service
Date of Service: April 22, 2025
Today's Communication
Continue ertapenem.
Assessment / Plan
# Complicated UTI with MDR ESBL-Ecoli
# Partial left obstructive uropathy
# Recent urinary retention requiring pacheco, then self-cath
- Blood cx neg to date.
-Continue ertapenem 1g IV q24h through 05/04/25.
- Infusion sheet submitted to community case manager.
- Place midline tomorrow.
Conditions present on admission:
Diabetes mellitus
Gastroparesis
CAD s/p stents x 5
Sigifredo's thyroiditis
Anxiety
Pulmonary nodule
Migraine
Nephrolithiasis hx stent
hx ESBL-UTI
Cystocele and rectocele status post anterior and posterior colporrhaphy and perineoplasty 04/02/25
Hysterectomy
Chief Complaint
-: UTI
Subjective / Review of Systems
Bladder pain and spasm improving. Still with right flank discomfort.
Vital Signs / Physical Exam
Vital Signs
Vital Signs
Temp Pulse Resp BP Pulse Ox
98.2 F 71 16 120/70 94
04/22/25 07:25 04/22/25 08:44 04/22/25 07:25 04/22/25 08:44 04/22/25 10:27
Physical Exam
Constitutional: No Acute Distress and Comfortable
Cardiovascular: Regular Rate and S1/S2
Gastrointestinal: Soft, Non Tender and Non Distended
Genito-Urinary: CVA Tenderness (mild right)
Extremities: Negative Edema
Neurological: AO x 3
Objective Data
Lab Data
Lab Results
04/22/25 07:03
04/22/25 07:03
Estimated Creat Clear 68 ml/min 04/22/25 07:03
Lactic Acid 1.1 mmol/L (0.7-2.0) 04/21/25 10:57
Total Bilirubin 0.5 mg/dl (0.2-1.3) 04/22/25 07:03
AST 26 U/L (14-36) 04/22/25 07:03
ALT 56 U/L (0-35) H 04/22/25 07:03
Alkaline Phosphatase 58 U/L (38-126) 04/22/25 07:03
Most recent labs reviewed.
Micro Results:
04/21/25 10:57 Blood Culture - Preliminary
Blood/Venous No Growth in 24 hours- Final report to follow
04/21/25 10:57 Blood Culture - Preliminary
Blood/Venous No Growth in 24 hours- Final report to follow
04/21/25 10:57 Urine Culture - Pending
Urine
04/21/25 CT a/p: There is mild left hydronephrosis secondary to a left proximal ureteral stone measuring 3 mm. This is seen best on image #44 series 201.
--- NOTE | 2025-04-22 12:09 | CM ---
Reviewed the chart notes and spoke with the patient a the bedside. Discuss infusion options. [facility] selected. IV abx script received. Clinicals and script faxed to [facility]. CM continues to be available to patient/family
and is monitoring medical plan for needs at discharge.
Plan: Discharge to home with IV abx through [facility].
[2025-04-22 12:35] LABS: Glucose - Point of Care 138 mg/dl (70-99)
--- NOTE | 2025-04-22 12:36 | W.PN.URO.CBU ---
Today's Communication / Plan
-
no gu intervention
Assessment / Plan
-
incidental finding left 3mm prox non obstructing stone will trweeta known ESBL E COLI UTI AND TRIAKL OF PASSAGE OF STONE OBSERVE FOR SEPSIS COLIC
Diagnosis
-
Date of Service: April 22, 2025
-
Patient Diagnosis:
Post Op Day:
Patient Diagnosis:esbl uti with incidental asx finding left prox non obstructing 3 mm prox ureteral stone
Post Op Day:
Subjective
-
no colic some nausea
Objective
-
Vital Signs
Temp Pulse Resp BP Pulse Ox
98.2 F 71 16 120/70 94
04/22/25 07:25 04/22/25 08:44 04/22/25 07:25 04/22/25 08:44 04/22/25 10:27
Intake and Output
04/21/25 04/22/25 04/23/25
06:59 06:59 06:59
Intake Total 480 / 480
Output Total 900 / 900
Balance -420 / -420
Intake:
Oral fluids 480 / 480
Output:
Urine, Voided 900 / 900
Laboratory Results
04/22/25 07:03
04/22/25 07:03
Review of Systems
-
Abdomen/GI: Nausea
: Dysuria
Physical Exam
-
General - well developed, well nourished, no acute distress
Chest - clear bilaterally
Abdomen - soft, non-tender, positive bowel sounds, no CVAT, no incisional pain or distention
Genitalia - normal
Rectal - normal
Skin - warm & dry with no rash
Neuro - AOx3, no motor deficits
Extremities - no clubbing, no cyanosis, no edema
Incision - clean, dry
Dressing - clean, dry, intact
Counseling
-
no gu interbention
Care Review
Data Reviewed
Discussed with: Nursing
CT Scan: Image Pers Reviewed
[2025-04-22 15:20] VITALS: BP 134/76
[2025-04-22] MEDS: INVANZ 60 MG IV (17:01)
[2025-04-22] MEDS: LOVENOX 40 MG SC (17:02)
[2025-04-22] MEDS: LIPITOR 40 MG PO (17:02)
[2025-04-22 17:40] LABS: Glucose - Point of Care 189 mg/dl (70-99)
[2025-04-22] MEDS: NOVOLOG FLEXPEN-LOW RESISTANCE 1 UNITS SC (18:00)
--- NOTE | 2025-04-22 18:35 | PTCARENOTE ---
Patient denies of pain at this time. No N/V noted. Plan of care ongoing.
[2025-04-22 21:05] LABS: Glucose - Point of Care 100 mg/dl (70-99)
[2025-04-22] MEDS: TORADOL 15 MG IV (22:17)
[2025-04-22 23:06] VITALS: BP 115/66
[2025-04-23 04:57] VITALS: BMI 22.1
[2025-04-23] MEDS: SYNTHROID 112 MCG PO (05:39)
[2025-04-23 06:32] LABS: Hematocrit 36.1 % (37.0-47.0); Hemoglobin 11.8 g/dL (12.0-16.0); Mean Corp Hgb Conc. 32.7 g/dL (33.0-37.0); Mean Corpuscular Volume 95.3 fL (81.0-99.0); Nucleated Red Blood Cells % 0 %; Platelet Count 279 10^3/uL (130-400); Red Cell Dist. Width 13.5 % (11.5-14.5)
[2025-04-23 06:59] LABS: ALT (SGPT) 55 U/L (0-35); AST (SGOT) 30 U/L (14-36); Albumin 3.6 g/dl (3.5-5.0); Alkaline Phosphatase 68 U/L (38-126); Blood Urea Nitrogen 16 mg/dl (7-17); Calcium 9.4 mg/dl (8.4-10.2); Carbon Dioxide 26 mmol/L (22-30); Chloride 109 mmol/L (98-107); Estimated Creatinine Clearance 79 ml/min; Glucose 90 mg/dl (70-99); Potassium 4.3 mmol/L (3.5-5.1); Sodium 139 mmol/L (135-145); Total Protein 6.0 g/dl (6.3-8.2); eGFR > 60.00
[2025-04-23 07:25] VITALS: BP 108/71
[2025-04-23 07:38] LABS: Glucose - Point of Care 111 mg/dl (70-99)
[2025-04-23] MEDS: NOVOLOG FLEXPEN-LOW RESISTANCE SC ×2 (08:02→12:38)
[2025-04-23] MEDS: COREG PO (08:03)
[2025-04-23] MEDS: FARXIGA 10 MG PO (08:29)
[2025-04-23] MEDS: MIRALAX 17 GRAMS PO (08:29)
[2025-04-23] MEDS: THERAGRAN 1 TABLET PO (08:29)
--- NOTE | 2025-04-23 09:07 | CM ---
Addendum entered by Tiffanie Lindsey RN 04/23/25 16:03:
[facility] can see patient tomorrow. Will discharge today after dose of IV abx. Spouse at bedside to provide transportation.
Original Note:
Reviewed the chart notes and spoke with intake at [facility] ([phone]). Referral received and processed. Nancy is working on placing patient on the schedule starting tomorrow or . Nancy will contact CM once they have a definite
date. Midline to be placed today. Will need to fax Midline info to ([phone]). Patient updated at bedside. CM continues to be available to patient/family and is monitoring medical plan for needs at discharge.
Plan: Discharge to home with IV abx through [facility].
--- NOTE | 2025-04-23 09:56 | W.PN.ID1 ---
Date of Service
Date of Service: April 23, 2025
Today's Communication
Continue ertapenem.
Assessment / Plan
# Complicated UTI with MDR ESBL-Ecoli
# Partial left obstructive uropathy
# Recent urinary retention requiring pacheco, then self-cath
- Blood cx neg to date.
-Continue ertapenem 1g IV q24h through 05/04/25.
- Infusion sheet submitted to window caser 04/22.
- Place midline today
- Per window caser, possible dc today or tomorrow pending nursing availability for infusion.
Conditions present on admission:
Diabetes mellitus
Gastroparesis
CAD s/p stents x 5
Sigifredo's thyroiditis
Anxiety
Pulmonary nodule
Migraine
Nephrolithiasis hx stent
hx ESBL-UTI
Cystocele and rectocele status post anterior and posterior colporrhaphy and perineoplasty 04/02/25
Hysterectomy
Chief Complaint
-: UTI
Subjective / Review of Systems
Urine symptoms resolving.
She can feel left renal stone moving.
Vital Signs / Physical Exam
Vital Signs
Vital Signs
Temp Pulse Resp BP Pulse Ox
98.9 F 80 16 108/71 97
04/23/25 07:25 04/23/25 08:03 04/23/25 07:25 04/23/25 08:03 04/23/25 07:25
Physical Exam
Constitutional: No Acute Distress and Comfortable
Cardiovascular: Regular Rate and S1/S2
Gastrointestinal: Soft, Non Tender and Non Distended
Genito-Urinary: Negative CVA Tenderness
Extremities: Negative Edema
Neurological: AO x 3
Objective Data
Lab Data
Lab Results
04/23/25 05:33
04/23/25 05:33
Estimated Creat Clear 79 ml/min 10/14/25 05:33
Lactic Acid 1.1 mmol/L (0.7-2.0) 04/21/25 10:57
Total Bilirubin 0.5 mg/dl (0.2-1.3) 04/23/25 05:33
AST 30 U/L (14-36) 04/23/25 05:33
ALT 55 U/L (0-35) H 04/23/25 05:33
Alkaline Phosphatase 68 U/L (38-126) 04/23/25 05:33
Most recent labs reviewed.
Micro Results:
04/21/25 10:57 Urine Culture - Final
Urine Escherichia coli - ESBL
04/21/25 10:57 Blood Culture - Preliminary
Blood/Venous No Growth in 24 hours- Final report to follow
04/21/25 10:57 Blood Culture - Preliminary
Blood/Venous No Growth in 24 hours- Final report to follow
04/21/25 CT a/p: There is mild left hydronephrosis secondary to a left proximal ureteral stone measuring 3 mm. This is seen best on image #44 series 201.
--- NOTE | 2025-04-23 11:03 | W.DCSUMMARY ---
Discharge Summary
Discharge Data
Date of Admission: 04/21/25
Date of Discharge: 04/24/25
Total time spent discharging patient (in min): 40
-
Pending Results: No
Hospital Course
Attending physician on day of discharge:
Michelle Lorenz MD
Admission diagnosis:
UTI
Discharge diagnosis:
Complicated UTI due to ESBL E Coli
Secondary diagnoses:
CAD, HTN, HLD, hypothyroidism, DM
Consultations:
ID
Urology
Procedures:
Midline
Hospital course:
64F w/ DM, CAD, kidney stones, bladder prolapse s/p surgery, p/w dysuria, found to have UTI that failed outpatient antibiotics. Dysuria was treated with Pyridium. Patient was found to have a small left side incompletely obstructing stone, urology
was consulted and most managed nonoperatively. ID was consulted and she was treated with IV ertapenem, with midline was placed for home infusion through 05/04/25
Physical exam on discharge:
Gen: NAD
HEENT: PERRLA, EOMI, MMM, neck supple
Cards: RRR, no M/G/R
Resp: Lungs CTAB, no W/R/R
GI: soft, NT/ND/NABS
MSK: No edema
Skin: warm and dry, no rash, ulcer or lesions
Heme: No LAD
Psych: Calm
Neuro: AAOx3
Diagnostic findings:
CT abdomen pelvis: Mild left hydronephrosis secondary to a 3 mm proximal right ureteral stone. Contrast passes beyond this region during the excretory phase suggesting incomplete obstruction.Stable.
Mild diffuse bladder wall thickening. This can be seen with cystitis or bladder outlet obstruction. Stable
Perirectal postprocedural changes versus abscesses. See above. Clinical and laboratory correlation recommended.
Mild diverticulosis. Stable
Right-sided pulmonary nodules. Stable.
Discharge disposition:
Home with [facility]
Discharge Plan
-
Patient Disposition: Home (Routine Discharge)
Discharge Diagnosis/Procedures: UTI
Condition: Good
Diet: Regular
Activity: No restrictions
Other Services: VN
Instructions: Urinary tract infection (DC), How to care for a peripherally inserted central catheter (PICC)
Referrals:
Sang Pack MD [Active, Urology]
Bradley Mejias MD [Family Provider, Family Practice]
Tarah Horne MD [Active, Infectious Diseases] - As needed
Prescriptions:
New
Ertapenem [Invanz] 1000 MG
0.9% Sodium Chloride [Nss] 50 ML
120 mls/hr IV Q24H
Ordered By: Michelle Lorenz MD
Last Taken: 04/23/25 16:02 60 mls
Continued
furosemide 40 MG tablet
40 mg PO MOWEFR
carvedilol [Coreg] 12.5 mg Tablet
12.5 mg PO BID
alprazolam [Xanax] 0.25 mg Tablet
0.25 mg PO HSPRN PRN (Reason: anxiety, insomnia)
Jardiance 25 mg Tablet
25 mg PO DAILY
atorvastatin 40 MG tablet
40 mg PO QPM
metformin 1,000 MG tablet
1,000 mg PO BID
levothyroxine [Synthroid] 112 mcg tablet
112 mcg PO DAILY
Visbiome 112.5 billion cell Capsule
1 cap PO DAILY Qty: 0
trimethoprim 100 mg Tablet
100 mg PO DAILY
polyethylene glycol 3350 17 gram powder in packet
17 g PO DAILY
clopidogrel 75 MG tablet
75 mg PO DAILY
therapeutic multivitamin Tablet
1 tab PO DAILY
losartan 100 mg Tablet
50 mg PO DAILY
Ozempic 1 mg/dose (4 mg/3 mL) Pen Injector
1 mg SC SA
Estradiol-Testosterone Cream
1 applic vaginal MOWEFR
Rx Instructions:
0.01%-0.025%
aspirin 81 MG tablet,delayed release (DR/EC)
81 mg PO DAILY
Discharge Orders:
Discharge Patient (As Directed); Ordered 04/23/25
Ordered By: Michelle Lorenz
Discharge Date and Time
Discharge Date/Time: 04/23/25 17:26
Print Language: [place]
[2025-04-23 11:36] LABS: Glucose - Point of Care 99 mg/dl (70-99)
[2025-04-23 15:10] VITALS: BP 137/77
[2025-04-23] MEDS: INVANZ 60 MG IV (16:02)
[2025-04-23 16:54] LABS: Glucose - Point of Care 102 mg/dl (70-99)
--- NOTE | 2025-04-25 15:48 | PN.CDI ---
CDI
- -
CDI:
Physician Documentation Request
Admit Date: 04/21/25 14:46
Dear Doctor,
Patient admitted for UTI.
ER Physician Documentation: 'She had a bladder prolapse surgery about 2 to 3 weeks ago and has been self cathing up until about 2 days ago. She was here recently diagnosed with a UTI and she started on Bactrim found to be resistant and started on
cefdinir. Urine culture grew out E. coli ESBL.'
04/22 Hospitalist PN: 'Complicated UTI due to ESBL E Coli, Could be secondary to recent Ferreira, and self caths'
DC Summary: 'Complicated UTI due to ESBL E Coli'
Please clarify the following:
____ - CAUTI was present on admission and is now resolved.
____ - CAUTI was present on admission and is still being monitored, evaluated or treated
____ - CAUTI was ruled out
____ - CAUTI is still a likely, suspected, probable diagnosis
____ - Other
____ - Unable to determine
Use of terms such as suspected, likely, concern for, or probable (associated with a specific diagnosis that is being evaluated, monitored, or treated as if it exists) are acceptable and can be coded in the inpatient setting, when documented at the
time of discharge.
Thank you,
Vianey Schwab RN, BSN
CDI Specialist
Available via [place] text
Please use your independent medical judgment in providing your response.
--- NOTE | 2025-04-29 13:29 | OID.L.PAT ---
Pulmonary Nodule Pat Letter
- -
04/29/25
ALISE GARCIA
[address] [facility]
[place], [place]
Collins CARRERO,
A pulmonary nodule was seen on an imaging study done by [facility]. This was reviewed by the [facility] Pulmonary Nodule Advisory Board and the following recommendation was made:
Recommendation: Follow up CT Chest - now
If you have any questions, please do not hesitate to contact your primary care physician. If you are in need of a Physician, you can go to [email or web address] and click on 'Find a Provider'. Type 'Family Medicine' in the search.
Oncology Nurse Navigator
[facility]
[phone]
--- NOTE | 2025-04-29 13:29 | OID.L.REC ---
Pulmonary Nodule Follow Up
- Recommendation
04/29/25
Pulmonary Nodule Review Recommendations
Your patient, ALISE GARCIA, had a pulmonary nodule seen on an imaging study done on 04/21/2025 in the [facility] Emergency Department.
This was reviewed by the [facility] Pulmonary Nodule Advisory Board and the following recommendation was made:
Recommendation: Follow up CT Chest - now
If you have any questions, please do not hesitate to contact us.
Sincerely,
Oncology Nurse Navigator
[facility]
[phone]
== END 2025-04-23 17:26 | disposition home or self-care (01) | DRG 699 ==
LOC: 2 NORTH 14:46
PROVIDERS: Clinical Nurse Specialist Family Health; Physician Assistant; ADMITTING PHYSICIAN Internal Medicine; ATTENDING PHYSICIAN Internal Medicine; CONSULT PHYSICIAN Internal Medicine Infectious Disease; EMERGENCY PHYSICIAN Emergency Medicine; FAMILY PHYSICIAN Family Medicine
DX: T83.518A Infection and inflammatory reaction due to other urinary catheter, initial encounter (principal); N39.0 Urinary tract infection, site not specified; Z16.12 Extended spectrum beta lactamase (ESBL) resistance; B96.20 Unspecified Escherichia coli [E. coli] as the cause of diseases classified elsewhere; N13.9 Obstructive and reflux uropathy, unspecified; E11.43 Type 2 diabetes mellitus with diabetic autonomic (poly)neuropathy; K31.84 Gastroparesis; Z95.5 Presence of coronary angioplasty implant and graft; I25.10 Atherosclerotic heart disease of native coronary artery without angina pectoris; E06.3 Autoimmune thyroiditis; F41.9 Anxiety disorder, unspecified; G43.909 Migraine, unspecified, not intractable, without status migrainosus; Z87.442 Personal history of urinary calculi; E78.5 Hyperlipidemia, unspecified; I10 Essential (primary) hypertension; Z87.440 Personal history of urinary (tract) infections; Z79.02 Long term (current) use of antithrombotics/antiplatelets; Z79.82 Long term (current) use of aspirin; Z79.84 Long term (current) use of oral hypoglycemic drugs; Z79.890 Hormone replacement therapy; Z79.85 Long-term (current) use of injectable non-insulin antidiabetic drugs; Z79.899 Other long term (current) drug therapy; I25.2 Old myocardial infarction; K58.9 Irritable bowel syndrome, unspecified; Z86.0100 Personal history of colon polyps, unspecified
CPT/HCPCS: 74177; 80053; 81003; 81015; 82962; 83036; 83605; 85025; 87040; 87077; 87086; 87186; 96361; 96374; 99285; J1335; Q9967

== ENCOUNTER 2025-05-17 06:33 | Day surgery (SDC) | payer BC, SELFPAY ==
[2025-05-17] VITALS (12 sets, daily range): BP systolic 131–150; BP diastolic 61–77; BMI 24.6
[2025-05-17] MEDS: EMEND 40 MG PO (12:01)
[2025-05-17 12:14] LABS: Glucose - Point of Care 99 mg/dl (70-99)
[2025-05-17 13:41] LABS: Glucose - Point of Care 91 mg/dl (70-99)
[2025-05-17] MEDS: DILAUDID 0.25 MG IV (13:48)
== END 2025-05-17 15:37 | disposition home or self-care (01) ==
LOC: SDS 06:33
PROVIDERS: ATTENDING PHYSICIAN Urology
DX: N20.2 Calculus of kidney with calculus of ureter (principal)
CPT/HCPCS: 52353; 76000; 82365; 82962; J1335